=== PATIENT | female | born 1955 | race Caucasian/White ===

== ENCOUNTER 2019-09-15 07:48 | Outpatient (CLI) | payer MEDICARE, SELFPAY ==
--- NOTE | ~2019-09-15 | DEXA_ITS ---
Bone Density Report Name: Michelle Bailey Age: 64 Sex: Female Ethnicity: White Date of : 1955 Indication: postmenopausal; Referring Provider: VIDYA WALLIS Study: Bone densitometry was performed. Exam Date: September 15, 2019 Accession number: [id number] Bone Density: Region BMD T-score Z-score Classification AP Spine (L1-L4) 0.862 -1.7 0.2 Osteopenia Femoral Neck (Left) 0.688 -1.5 0.1 Osteopenia Total Hip (Left) 0.899 -0.3 1.0 Normal Total Hip Bilateral Avg 0.889 -0.4 0.9 Normal Femoral Neck (Right) 0.678 -1.5 0.1 Osteopenia Total Hip (Right) 0.878 -0.5 0.8 Normal World Health Organization criteria for BMD impression classify patients as: Normal (T-score at or above -1.0), Osteopenia (T-score between -1.0 and -2.5), or Osteoporosis (T-score at or below -2.5). 10-year Fracture Risk(1): Major Osteoporotic Fracture 9.0% Hip Fracture 1.1% Reported Risk Factors: [place] (), Neck BMD=0.678, BMI=23.6 (1) FRAX(R) Version 3.08. Fracture probability calculated for an untreated patient. Fracture probability may be lower if the patient has received treatment. Clinical Information Provided by Patient: Has used the following medications: Vitamin D Patient maximum height was 65 Menopause Age: 49 Drinks caffeinated beverages Onset of menses at age 13 Number of children 1 Impression: The patient has low bone mass, based on the Total Spine T-score. The patient has an estimated ten-year risk of hip fracture of 1.1% and an estimated ten-year risk of major fracture of 9%, based on the WHO FRAX algorithm. Discussion: BONE DENSITY IS LOW AT ONE OR MORE SKELETAL SITES. This patient's lowest T-score is low at one or more skeletal sites. It meets the World Health Organization's (WHO) criteria for ?low bone mass? (T-score between -1.0 and -2.5). The patient's 10-year risk of fracture as calculated by FRAX is less than the threshold where pharmacological therapy is recommended by the National Osteoporosis Foundation (NOF). However, all treatment decisions require clinical judgment and consideration of individual patient factors, including patient preferences, comorbidities, previous drug use, risk factors not captured in the FRAX model (e.g., frailty, falls, vitamin D deficiency, increased bone turnover, interval significant decline in bone density) and possible under or overestimation of fracture risk by FRAX. The patient should follow a healthful lifestyle (good nutrition with adequate calcium and vitamin D, and appropriate weight-bearing exercise). Follow-Up: Consider repeating this study in 2 to 3 years to reassess this patient's status, or sooner if there is some new clinical indication. Reported by: AUGUST on 09/15/2019 8:22:00 AM. joseph Moran
== END 2019-09-15 07:49 | disposition home or self-care (01) ==
PROVIDERS: PCP Family Medicine; Visit Provider Obstetrics & Gynecology Gynecology
DX: Z78.0 Asymptomatic menopausal state (principal); M85.88 Other specified disorders of bone density and structure, other site; M85.852 Other specified disorders of bone density and structure, left thigh; M85.851 Other specified disorders of bone density and structure, right thigh
CPT/HCPCS: 77080

== ENCOUNTER 2020-09-14 10:34 | Outpatient (CLI) | payer MEDICARE, SELFPAY ==
--- NOTE | ~2020-09-14 | MM_ITS ---
EXAMINATION: MM screening koffi BI w kyaw HISTORY: Screening TECHNIQUE: Craniocaudal and mediolateral oblique 3-D tomosynthesis images were obtained and synthetic 2-D images were generated. CAD analysis was submitted and interpreted. COMPARISON: 06/12/2012 BREAST PARENCHYMAL COMPOSITION: There are scattered areas of fibroglandular density. FINDINGS: There is no evidence of suspicious mass, calcification, or architectural distortion to sugg est malignancy in either breast. There has been no suspicious interval change. IMPRESSION: 1. No mammographic evidence of malignancy. 2. Recommend routine screening mammography in one year. BI-RADS Category 1: Negative Reviewed, dictated and finalized at location A. GER TREASURY
== END 2020-09-14 10:35 | disposition home or self-care (01) ==
PROVIDERS: PCP Family Medicine; Visit Provider Obstetrics & Gynecology Gynecology
DX: Z12.31 Encounter for screening mammogram for malignant neoplasm of breast (principal)
CPT/HCPCS: 77063; 77067

== ENCOUNTER → 2021-06-14 03:34 | Outpatient (CLI) | payer MEDICARE, SELFPAY ==
[2021-06-14 17:35] LABS: SARS-CoV-2 RNA PCR Negative
== END ==
PROVIDERS: PCP Family Medicine; Visit Provider Obstetrics & Gynecology Gynecology
DX: Z20.822 Contact with and (suspected) exposure to COVID-19 (principal)
CPT/HCPCS: C9803; U0003; U0005

== ENCOUNTER 2021-10-10 09:28 | Outpatient (CLI) | payer MEDICARE, SELFPAY ==
--- NOTE | ~2021-10-10 | XR_ITS ---
EXAMINATION: XR lumbar spine 6V w bending DATE: 10/10/2021 09:55 INDICATION: Dorsalgia TECHNIQUE: Anteroposterior, lateral in neutral, flexion and extension, and bilateral oblique views of the lumbar spine, and cone-down lateral view of the lumbosacral junction were obtained. COMPARISON: None. FINDINGS: There is no fracture. There are 3 mm of anterolisthesis of L3 on L4. No laxity is present w ith flexion or extension. There is moderate loss of intervertebral disc space height at L2-3. Mild lo ss of intervertebral disc space height is present at L3-4 and L5-S1. The vertebral body heights are m aintained. Small degenerative osteophytes project from the anterior endplates of multiple vertebral b odies. There is moderate facet osteoarthritis of the lower lumbar spine. Calcified atherosclerosis is noted. IMPRESSION: 1. Moderate lumbar spondylosis without acute findings. Reviewed, dictated and finalized at location F. 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
== END 2021-10-10 09:29 | disposition home or self-care (01) ==
PROVIDERS: PCP Family Medicine; Visit Provider Family Medicine
DX: M47.896 Other spondylosis, lumbar region (principal)
CPT/HCPCS: 72114

== ENCOUNTER 2021-11-08 08:08 | Outpatient (CLI) | payer MEDICARE, SELFPAY ==
--- NOTE | ~2021-11-08 | DEXA_ITS ---
Bone Density Report Name: AMBER FREEMAN Age: 66 Sex: Female Ethnicity: White Date of : 1955 Indication: osteopenia; monitoring treatment; postmenopausal Referring Provider: VIDYA WALLIS Study: Bone densitometry was performed. Exam Date: November 08, 2021 Accession number: [id number] Bone Density: Region BMD T-score Z-score Classification AP Spine (L1-L4) 0.953 -0.9 1.2 Normal Femoral Neck (Left) 0.697 -1.4 0.3 Osteopenia Total Hip (Left) 0.926 -0.1 1.3 Normal Total Hip Bilateral Avg 0.897 -0.4 1.1 Normal Femoral Neck (Right) 0.665 -1.7 0.1 Osteopenia Total Hip (Right) 0.866 -0.6 0.8 Normal World Health Organization criteria for BMD impression classify patients as: Normal (T-score at or above -1.0), Osteopenia (T-score between -1.0 and -2.5), or Osteoporosis (T-score at or below -2.5). 10-year Fracture Risk: FRAX not reported because: Treated for osteoporosis Previous Exams: Region Exam Age BMD T-score BMD Change BMD Change Date g/cm2 vs Baseline vs Previous AP Spine(L1-L4) 11/08/2021 66 0.953 -0.9 0.091(10.6%)* 0.091(10.6%)* 09/15/2019 64 0.862 -1.7 Total Hip(Left) 11/08/2021 66 0.926 -0.1 0.026(2.9%) 0.026(2.9%) 09/15/2019 64 0.899 -0.3 Total Hip(Right) 11/08/2021 66 0.866 -0.6 -0.012(-1.3%) -0.012(-1.3%) 09/15/2019 64 0.878 -0.5 *Denotes significance at 95% confidence level, LSC for AP Spine = 0.022 g/cm2, LSC for Total Hip = 0.027 g/cm2 Clinical Information Provided by Patient: Is being treated for osteoporosis Has used the following medications: Boniva (i.e. ibandronate), Vitamin D Patient maximum height was 65 Menopause Age: 49 Drinks caffeinated beverages Onset of menses at age 13 Number of children 1 Impression: The patient has low bone mass, based on the Right Femoral Neck T-score. No significant bone loss was observed. Discussion: PATIENT UNDER TREATMENT WITH NO SIGNIFICANT BMD LOSS SINCE LAST EXAM. In an untreated patient, BMD typically declines with age. A lack of decline or gain is usually a sign that treatment is efficacious and fracture risk is reduced. It is important to ask patients whether they are taking their medications and to encourage continued and appropriate compliance with their osteoporosis therapies to reduce fracture risk. It is also important to review their risk factors and encourage appropriate calcium and vitamin D intakes, exercise, fall prevention and other lifestyle measur
== END 2021-11-08 08:09 | disposition home or self-care (01) ==
LOC: ANHIMG 08:10
PROVIDERS: PCP Family Medicine; Visit Provider Obstetrics & Gynecology Gynecology
DX: Z78.0 Asymptomatic menopausal state (principal); M85.89 Other specified disorders of bone density and structure, multiple sites
CPT/HCPCS: 77080

== ENCOUNTER 2021-11-30 16:08 | Outpatient (CLI) | payer MEDICARE, SELFPAY ==
--- NOTE | ~2021-11-30 | MM_ITS ---
EXAMINATION: MM screening koffi BI w kyaw HISTORY: Screening TECHNIQUE: Craniocaudal and mediolateral oblique 3-D tomosynthesis images were obtained and synthetic 2-D images were generated. CAD analysis was submitted and interpreted. COMPARISON: Comparison to multiple prior studies sequentially, with oldest reviewed study dated 05/20. BREAST PARENCHYMAL COMPOSITION: The breasts are heterogeneously dense, which may obscure small masses . FINDINGS: There is no evidence of suspicious mass, calcification, or architectural distortion to sugg est malignancy in either breast. There has been no suspicious interval change. IMPRESSION: 1. No mammographic evidence of malignancy. 2. Recommend routine screening mammography in one year. BI-RADS Category 1: Negative Reviewed, dictated and finalized at location A.
== END 2021-11-30 16:09 | disposition home or self-care (01) ==
PROVIDERS: PCP Family Medicine; Visit Provider Obstetrics & Gynecology Gynecology
DX: Z12.31 Encounter for screening mammogram for malignant neoplasm of breast (principal)
CPT/HCPCS: 77063; 77067

== ENCOUNTER 2023-02-13 15:00 | Outpatient (CLI) | payer MEDICARE, SELFPAY ==
--- NOTE | ~2023-02-13 | MM_ITS ---
EXAMINATION: MM screening koffi BI w kyaw HISTORY: Screening mammogram TECHNIQUE: Craniocaudal and mediolateral oblique 3-D tomosynthesis images were obtained and synthetic 2-D images were generated. CAD analysis was submitted and interpreted. COMPARISON: November 30, 2021, September 14, 2020 bilateral screening mammogram examinations BREAST PARENCHYMAL COMPOSITION: The breasts are heterogeneously dense, which may obscure small masses . FINDINGS: There is no evidence of suspicious mass, calcification, or architectural distortion to sugg est malignancy in either breast. There has been no suspicious interval change. IMPRESSION: 1. No mammographic evidence of malignancy. 2. Recommend routine screening mammography in one year. BI-RADS Category 1: Negative Reviewed, dictated and finalized at location A.
== END 2023-02-13 15:01 | disposition home or self-care (01) ==
LOC: ANHIMG 15:02
PROVIDERS: PCP Family Medicine; Visit Provider Obstetrics & Gynecology Gynecology
DX: Z12.31 Encounter for screening mammogram for malignant neoplasm of breast (principal)
CPT/HCPCS: 77063; 77067

== ENCOUNTER 2023-03-01 08:22 | Outpatient (CLI) | payer MEDICARE, SELFPAY ==
--- NOTE | ~2023-03-01 | XR_ITS ---
Right Shoulder Technique: AP and axillary views were obtained. Clinical History: Pain Findings: No fracture or dislocation is seen. Osseous alignment is anatomic. The glenohumeral and acr omioclavicular joint spaces are preserved. Soft tissues are unremarkable. Impression: Unremarkable right shoulder radiographs. Reviewed, dictated and finalized at [facility]. Impression: Unremarkable right shoulder radiographs.
--- NOTE | ~2023-03-01 | XR_ITS ---
EXAMINATION:[id number] DATE: 03/01/2023 08:49 INDICATION: Neck pain TECHNIQUE: AP, lateral, and odontoid views of the cervical spine are provided. COMPARISON: None FINDINGS: Alignment is normal. The odontoid process is intact. No fracture is identified. The vertebr al body heights are maintained. There is moderate loss of intervertebral disc space height at C5-6 an d C6-7 and mild loss of disc space height at C4-5. Small degenerative osteophytes project from the an terior endplates of multiple vertebral bodies. There is moderate facet and uncovertebral joint osteoa rthritis at C5-6 and C6-7. Prevertebral soft tissues are normal. IMPRESSION: 1. Moderate cervical spondylosis without acute findings. Reviewed, dictated and finalized at location B.
== END 2023-03-01 08:23 | disposition home or self-care (01) ==
PROVIDERS: PCP Family Medicine; Visit Provider Physician Assistant
DX: M25.511 Pain in right shoulder (principal); M47.892 Other spondylosis, cervical region
CPT/HCPCS: 72040; 73030

== ENCOUNTER 2023-05-31 07:58 | Outpatient (CLI) | payer MEDICARE, SELFPAY ==
--- NOTE | ~2023-05-31 | MR_ITS ---
MRI of the cervical spine Clinical History: Cervical spondylosis Technique: Axial T2-weighted and gradient images, and sagittal T1-weighted, T2-weighted, and STIR estrella ges were acquired. Findings: There is no fracture or subluxation of cervical spine. Vertebral bodies maintain normal hei ght and alignment. No suspicious bone marrow signal abnormality seen. At C2-C3, there is no significant disc bulge or herniation. No spinal canal stenosis, cord compressio n, or neural foraminal narrowing. At C3-C4, there is minimal disc bulge. No spinal canal stenosis, cord compression, or neural foramina l narrowing. At C4-C5, there is mild disc osteophyte complex, most prominent at the right foraminal region. There is mild right facet arthropathy. There is mild right neural foraminal narrowing. Left neural foramen preserved. No central canal stenosis or cord compression. At C5-C6, there is disc osteophyte complex with minimal canal stenosis but no teo cord compression. There is bilateral neural foraminal narrowing. At C6-C7, there is disc osteophyte complex. There is probable minimal bilateral neural foraminal narr owing. No central canal stenosis or cord compression. No abnormal signal seen in the spinal cord. Paravertebral soft tissues are unremarkable. Impression: Mild degenerative spondylosis overall, as detailed above. Reviewed, dictated and finalized at [facility]. Impression: Mild degenerative spondylosis overall, as detailed above.
== END 2023-05-31 07:59 | disposition home or self-care (01) ==
PROVIDERS: PCP Family Medicine; Visit Provider Physician Assistant
DX: M43.02 Spondylolysis, cervical region (principal); M47.22 Other spondylosis with radiculopathy, cervical region
CPT/HCPCS: 72141

== ENCOUNTER 2024-01-16 07:21 | Day surgery (SDC) | payer MEDICARE, SELFPAY ==
[2024-01-06 13:17] VITALS: BMI 23.3
--- NOTE | 2024-01-16 06:56 | WPDANESEPPF ---
Anes - Initial Pre Proc Eval Procedure: Operation Date: 01/16/24 09:30 Proposed Procedures p Esophagogastroduodenoscopy - Vahid Capps MD s Diagnostic Colonoscopy - Vahid Capps MD <Edwin Alcala, DO - Last Filed: 01/16/24 11:17> Date/Time: 01/16/24 06:56 <Edwin Alcala, DO - Last Filed: 01/16/24 11:17> Surgeon: Vahid Capps MD <Edwin Alcala, DO - Last Filed: 01/16/24 11:17> Pre Op Diagnosis: Gerd , Family HX Malignant Neoplasm <Edwin Alcala, DO - Last Filed: 01/16/24 11:17> Patient Data Age: 68 Gender: F Height: 1.65 m Weight: 63.503 kg <Edwin Alcala, DO - Last Filed: 01/16/24 11:17> Allergies Allergy/AdvReac Type Severity Reaction Status Date / Time Penicillins Allergy Mild Hives / Verified 01/16/24 08:22 Red Face <Edwin Alcala, DO - Last Filed: 01/16/24 11:17> Home Medications Medication Instructions Recorded Confirmed Type Bacillus coagulans 10 billion cell cell PO DIRECTED 09/15/19 01/02/24 History capsule,delayed release (Probiotic (B. coagulans)) valacyclovir 1 gram tablet 1,000 mg PO DAILY PRN preventive 02/15/22 01/16/24 Rx #90 tabs ergocalciferol (vitamin D2) 1,250 50,000 unit PO .QOWEEK #10 caps 01/02/24 01/16/24 Rx mcg (50,000 unit) capsule levothyroxine 50 mcg tablet See Rx Instructions .Route 01/02/24 01/16/24 Rx .COMPLEX #90 tabs pantoprazole 20 mg tablet,delayed See Rx Instructions .Route 01/02/24 01/16/24 Rx release .COMPLEX #90 tabs rosuvastatin 5 mg tablet See Rx Instructions .Route 01/02/24 01/16/24 Rx .COMPLEX #90 tabs sodium,potassium,mag sulfates 17.5 See Rx Instructions PO .COMPLEX 01/06/24 01/16/24 Rx gram-3.13 gram-1.6 gram oral soln #354 mL (Suprep Bowel Prep Kit) <Edwin Alcala DO - Last Filed: 01/16/24 11:17> Patient hx anesthesia problems: none <Hamzah Francois CRNA - Last Filed: 01/16/24 09:01> Family hx anesthesia problems: none <Hamzah Francois CRNA - Last Filed: 01/16/24 09:01> Results Review: All pre-operative results and documents have been reviewed as part of the pre-operative evaluation. <Edwin Alcala, - Last Filed: 01/16/24 11:17> [facility] Past Medical History Medical History: Medical History (Updated 01/16/24 @ 09:00 by Vahid Capps MD) Adult hypothyroidism GERD (gastroesophageal reflux disease) Neck pain Prolonged Q-T interval on ECG PVC (premature ventricular contraction) <Edwin Alcala DO - Last Filed: 01/16/24 11:17> Surgical History Surgical History: Surgical History History of tonsillectomy and adenoidectomy <Edwin Alcala DO - Last Filed: 01/16/24 11:17> Family History Family History: Family History Father , 86yrs old Cerebrovascular accident, Onset Age: 86 Stroke A-fib Sibling Carcinoma of colon Diabetes mellitus <Edwin Alcala DO - Last Filed: 01/16/24 11:17> Social History Social History: Social History (Updated 01/02/24 @ 10:56 by Barbara Starks) Social History: Smoking status: Never smoker Second hand tobacco smoke exposure: No Alcohol intake: current Drinks per week: 6 Substance use: never Substance use type: does not use Do You Feel Safe in your Home?: Yes Lack of Transportation: No Lack of Food: Never True Current Housing: I Have Housing Concerned About Future Housing: No Difficulty Paying Gas/Electric Bills: No Difficulty Paying for Meds: No Currently Unemployed: YES Education: Don't Know Difficulty w/ Childcare or Family Care: No Living arrangements: with family Occupation/Education: retired Gender identity (if verbalized by the patient): Female Sexual Orientation (if Verbalized by the Patient): Straight or Heterosexual
[2024-01-16 08:32] VITALS: BP 117/72; PULSE 55; RESP 20; O2SAT 100
[2024-01-16] MEDS: LACTATED RINGERS 1,000 ML 150 ML IV CONT (08:44)
--- NOTE | 2024-01-16 08:58 | PM.HPGS ---
History of Present Illness History of Present Illness Consent: Risks, benefits, and alternatives have been discussed and questions answered. Patient agrees to proceed with procedure. Chief complaint: Gerd , Family HX Malignant Neoplasm Narrative: Michelle Bailey is a 68 year old female presents for both colonoscopy and EGD patient reports her weight appetite and bowel movements are normal. She denies abdominal pain. She has had no bleeding. She does have a long history of epigastric discomfort. This intensifies when she bends over. This is improved on taking pantoprazole. She currently takes 20mg every 3 days. She has been unable to have the pain totally go away. She presents today for EGD. She has never previously had an endoscopy. Patient denies any dysphagia weight loss or bleeding. Patient's brother has had colon cancer for this reason surveillance advised 5 year intervals. Review of Systems Review of Systems: All systems reviewed & are unremarkable except as noted in HPI and below PMFSH Past Medical History Medical History (Updated 01/16/24 @ 09:00 by Vahid Capps MD) Adult hypothyroidism GERD (gastroesophageal reflux disease) Neck pain Prolonged Q-T interval on ECG PVC (premature ventricular contraction) Surgical History Surgical History History of tonsillectomy and adenoidectomy Family History Family History Father , 86yrs old Cerebrovascular accident, Onset Age: 86 Stroke A-fib Sibling Carcinoma of colon Diabetes mellitus Social History Social History (Updated 01/02/24 @ 10:56 by Barbara Starks) Social History: Smoking status: Never smoker Second hand tobacco smoke exposure: No Alcohol intake: current Drinks per week: 6 Substance use: never Substance use type: does not use Do You Feel Safe in your Home?: Yes Lack of Transportation: No Lack of Food: Never True Current Housing: I Have Housing Concerned About Future Housing: No Difficulty Paying Gas/Electric Bills: No Difficulty Paying for Meds: No Currently Unemployed: YES Education: Don't Know Difficulty w/ Childcare or Family Care: No Living arrangements: with family Occupation/Education: retired Gender identity (if verbalized by the patient): Female Sexual Orientation (if Verbalized by the Patient): Straight or Heterosexual Meds Home Medications and Allergies Home Medications Medication Instructions Recorded Confirmed Type Bacillus coagulans 10 billion cell cell PO DIRECTED 09/15/19 01/02/24 History capsule,delayed release (Probiotic (B. coagulans)) valacyclovir 1 gram tablet 1,000 mg PO DAILY PRN preventive 02/15/22 01/16/24 Rx #90 tabs ergocalciferol (vitamin D2) 1,250 50,000 unit PO .QOWEEK #10 caps 01/02/24 01/16/24 Rx mcg (50,000 unit) capsule levothyroxine 50 mcg tablet See Rx Instructions .Route 01/02/24 01/16/24 Rx .COMPLEX #90 tabs pantoprazole 20 mg tablet,delayed See Rx Instructions .Route 01/02/24 01/16/24 Rx release .COMPLEX #90 tabs rosuvastatin 5 mg tablet See Rx Instructions .Route 01/02/24 01/16/24 Rx .COMPLEX #90 tabs sodium,potassium,mag sulfates 17.5 See Rx Instructions PO .COMPLEX 01/06/24 01/16/24 Rx gram-3.13 gram-1.6 gram oral soln #354 mL (Suprep Bowel Prep Kit) Allergies Allergy/AdvReac Type Severity Reaction Status Date / Time Penicillins Allergy Mild Hives / Verified 01/16/24 08:22 Red Face Vital Signs Vital Signs - 24 hr 01/16/24 08:32 Pulse Rate 55 L Respiratory Rate 20 Blood Pressure 117/72 Pulse Oximetry 100 Oxygen Delivery Room Air Exam Narrative: Physical exam reveals patient to be alert. Vital signs stable. HEENT exam is unremarkable. Patient is anicteric. Lungs are clear to auscultation and to percussion. His without murmur or extra sounds. Abdomen b
[2024-01-16 10:00] VITALS: BP 101/49; PULSE 56; RESP 12; O2SAT 99
[2024-01-16 10:10] VITALS: BP 100/61; PULSE 55; RESP 14; O2SAT 100
[2024-01-16 10:20] VITALS: BP 114/63; PULSE 58; RESP 16; O2SAT 100
--- NOTE | 2024-01-16 11:18 | WPDANESPN ---
Anes - Prog Note Post-Op Date/Time: 01/16/24 11:18 Cardiovascular status: normal Respiratory status: normal Airway patency: baseline Mental status: baseline Post-Op hydration status: normal Vital Signs: Last Vital Signs Pulse 58 L 01/16/24 10:20 Resp 16 01/16/24 10:20 BP 114/63 01/16/24 10:20 Pulse Ox 100 01/16/24 10:20 O2 Del Method Room Air 01/16/24 10:20 Pain Score (VAS): 0 I/O: Intake & Output 01/15/24 01/16/24 01/16/24 23:59 07:59 15:59 Intake Total 800 Balance 800 Post-procedural complaints: none Patient Feedback: Patient satisfied with anesthetic care. Other Findings: Patient vital signs back to baseline. Patient denies nausea and vomiting. Patient's pain under control. Patient OK for discharge.
== END 2024-01-16 10:26 | disposition home or self-care (01) ==
PROVIDERS: PCP Family Medicine; Visit Provider Internal Medicine Gastroenterology
PROC: 0DJ08ZZ Inspection of Upper Intestinal Tract, Via Natural or Artificial Opening Endoscopic (ICD-10-PCS; CPT 43235; principal; 2024-01-16 09:30)
PROC: 0DJD8ZZ Inspection of Lower Intestinal Tract, Via Natural or Artificial Opening Endoscopic (ICD-10-PCS; CPT 45378; 2024-01-16 09:30)
DX: Z80.0 Family history of malignant neoplasm of digestive organs (principal); K21.9 Gastro-esophageal reflux disease without esophagitis; K64.8 Other hemorrhoids; R10.13 Epigastric pain
CPT/HCPCS: G0105; 43235

== ENCOUNTER 2024-02-13 09:50 | Outpatient (CLI) | payer MEDICARE, SELFPAY ==
--- NOTE | ~2024-02-13 | DEXA_ITS ---
Bone Density Report Name: AMBER FREEMAN Age: 69 Sex: Female Ethnicity: White Date of : 1955 Indication: postmenopausal; screening for osteoporosis; height loss; Referring Provider: VIDYA WALLIS Study: Bone densitometry was performed. Exam Date: February 13, 2024 Accession number: [id number] Bone Density: Region BMD T-score Z-score Classification AP Spine(L1-L4) 0.959 -0.8 1.4 Normal Femoral Neck (Left) 0.723 -1.1 0.7 Osteopenia Total Hip (Left) 0.933 -0.1 1.5 Normal Femoral Neck (Right) 0.692 -1.4 0.4 Osteopenia Total Hip (Right) 0.876 -0.5 1.0 Normal Total Hip Mean 0.905 -0.3 1.3 Normal World Health Organization criteria for BMD impression classify patients as: Normal (T-score at or above -1.0), Osteopenia (T-score between -1.0 and -2.5), or Osteoporosis (T-score at or below -2.5). 10-year Fracture Risk: FRAX not reported because: Treated for osteoporosis Clinical Information Provided by Patient: Is being treated for osteoporosis Has used the following medications: Vitamin D, Calcium Patient maximum height was 66 Menopause Age: 49 Drinks caffeinated beverages Onset of menses at age 12 Number of children 1 Impression: The patient has low bone mass, based on the Right Femoral Neck T-score. Discussion: It is important to ask patients whether they are taking their medications and to encourage continued and appropriate compliance with their osteoporosis therapies to reduce fracture risk. It is also important to review their risk factors and encourage appropriate calcium and vitamin D intakes, exercise, fall prevention and other lifestyle measures. Follow-Up: Consider a repeat BMD and Vertebral Fracture Assessment (VFA) exam in 2 years or sooner if medically necessary, to reassess this patient's status. Reported by: ROBERTA on 02/13/2024 10:44:00 AM. Reviewed, dictated and finalized at location ARichard MALLORY
== END 2024-02-13 09:51 | disposition home or self-care (01) ==
PROVIDERS: PCP Family Medicine; Visit Provider Obstetrics & Gynecology Gynecology
DX: M85.89 Other specified disorders of bone density and structure, multiple sites (principal); Z78.0 Asymptomatic menopausal state; Z13.820 Encounter for screening for osteoporosis
CPT/HCPCS: 77080

== ENCOUNTER 2024-02-27 16:46 | Outpatient (CLI) | payer MEDICARE, SELFPAY ==
--- NOTE | ~2024-02-27 | MM_ITS ---
EXAMINATION: MM screening koffi BI w kyaw HISTORY: Screening TECHNIQUE: Craniocaudal and mediolateral oblique 3-D tomosynthesis images were obtained and synthetic 2-D images were generated. CAD analysis was submitted and interpreted. COMPARISON: Comparison to multiple prior studies sequentially, with oldest reviewed study dated 09/14. BREAST PARENCHYMAL COMPOSITION: Not dense: There are scattered areas of fibroglandular density. FINDINGS: There is no evidence of suspicious mass, calcification, or architectural distortion to sugg est malignancy in either breast. There has been no suspicious interval change. IMPRESSION: 1. No mammographic evidence of malignancy. 2. Recommend routine screening mammography in one year. BI-RADS Category 1: Negative Reviewed, dictated and finalized at location B.
== END 2024-02-27 16:47 | disposition home or self-care (01) ==
LOC: ANHIMG 16:48
PROVIDERS: PCP Family Medicine; Visit Provider Obstetrics & Gynecology Gynecology
DX: Z12.31 Encounter for screening mammogram for malignant neoplasm of breast (principal)
CPT/HCPCS: 77063; 77067

== ENCOUNTER 2024-03-26 13:29 | Outpatient (CLI) | payer MEDICARE, SELFPAY ==
--- NOTE | 2024-03-26 13:43 | ECHO_ITS ---
Patient Info Name: Michelle Bailey Age: 69 years : 1955 Gender: Female Ht: 65 in Wt: 140 lbs BSA: 1.71 m2 HR: 70 bpm BP: 146 / 77 mmHg Heart Rhythm: Sinus Rhythm Technical Quality: Good Exam Date: 03/26/2024 2:20 PM Exam Location: Echo Lab Patient Status: Outpatient Admit Date: 03/26/2024 Staff Ordering Physician: Mariluz Calderon MD Earth Mover: Cherelle Deleon RDCS Attending Provider: Mariluz Calderon MD Referring Physician: Yumiko COBB; Exam Type: CA echo doppler color flow Study Info Indications - murmur Complete two-dimensional, color flow and Doppler transthoracic echocardiogram is performed. Summary 1. Complete two-dimensional, color flow and Doppler transthoracic echocardiogram is performed. 2. Mild left ventricular enlargement with mild global systolic hypokinesia. 3. Mild left atrial enlargement. 4. Small amount of mitral regurgitation. Left Ventricle Left ventricular chamber dimension is mildly enlarged. Left ventricular systolic function is mildly reduced, estimated at 40-45%. The left ventricular diastolic function is grade I diastolic dysfunction. Right Ventricle Right ventricular chamber dimension is normal. Left Atria Left atrial chamber dimension is mildly enlarged. Right Atria Right atrial chamber dimension is normal. Aortic Valve The aortic valve is trileaflet. There is mild aortic valve sclerosis. Pulmonic Valve The pulmonic valve is not well visualized. Mitral Valve The mitral valve has normal leaflets. There is trace mitral valve regurgitation. Tricuspid Valve The tricuspid valve leaflets are normal. Pericardium/Pleural The pericardium appears normal. Aorta The aortic root size at the sinus of Valsalva is normal. Left Ventricular Outflow Tract Name Value Normal LVOT 2D LVOT Diameter 1.9 cm LVOT Doppler LVOT Peak Gradient 3 mmHg LVOT Mean Gradient 2 mmHg LVOT VTI 23 cm LVOT VTI/AV VTI Ratio 0.7 LVOT Stroke Volume 66 ml LVOT CO 3.7 l/min LVOT CI 2.1 l/min/m2 Pulmonic Valve Name Value Normal PV Doppler PV Peak Gradient 3 mmHg Mitral Valve Name Value Normal MV Doppler MV Decel Floyd 250 cm/s2 MV PHT 84 ms MV Area (PHT) 2.6 cm2 4.0-5.0 MV Regurgitation Doppler MR Peak Gradient 79 mmHg MV Diastolic F
== END 2024-03-26 13:30 | disposition home or self-care (01) ==
LOC: ANHCARD 13:33
PROVIDERS: PCP Family Medicine; Visit Provider Family Medicine
DX: R01.1 Cardiac murmur, unspecified (principal); Z98.890 Other specified postprocedural states
CPT/HCPCS: 93306

== ENCOUNTER 2024-04-15 09:07 | Outpatient (CLI) | payer MEDICARE, SELFPAY ==
--- NOTE | 2024-04-15 09:32 | EST_ITS ---
Patient Info Name: Michelle Bailey Age: 69 years : 1955 Gender: Female Ht: 65 in Wt: 140 lbs BSA: 1.71 m2 HR: 62 bpm BP: 126 / 81 mmHg Heart Rhythm: Sinus Rhythm Exam Date: 04/15/2024 9:43 AM Exam Location: Echo Lab Patient Status: Outpatient Admit Date: 04/15/2024 Staff Ordering Physician: Mariluz Calderon MD Attending Provider: Mariluz Calderon MD Exercise Technologist: Cyndee Morton CT Exercise Physician: Rod Wallis DO Exam Type: CA stress test treadmill Study Info Indications R07.89 - Other chest pain A treadmill exercise stress test was performed. Summary 1. 1. Negative Garfield exercise stress test for ischemic ST changes by ECG criteria. 2. 2. Good functional capacity, achieving 8 METs of workload. 3. 3. Hypertensive response to exercise. 4. 4. Appropriate HR response to exercise. 5. 5. Appropriate HR recovery at 1 minute post exercise. 6. 6. No imaging with stress testing. 7. 7. Patient informed of the above results. Protocol: Garfield Stress ECG Details Stage: REST Duration (min): 0 min : 58 sec Speed (mph): 0.0 Grade (%): 0 HR (bpm): 64 SBP (mmHg): 126 DBP (mmHg): 81 METS: --- Stage: REST Duration (min): 4 min : 50 sec Speed (mph): 0.0 Grade (%): 0 HR (bpm): 69 SBP (mmHg): 126 DBP (mmHg): 81 METS: --- Stage: STAGE 1 Duration (min): 1 min : 0 sec Speed (mph): 1.7 Grade (%): 10 HR (bpm): 91 SBP (mmHg): 126 DBP (mmHg): 81 METS: --- Stage: STAGE 1 Duration (min): 2 min : 0 sec Speed (mph): 1.7 Grade (%): 10 HR (bpm): 98 SBP (mmHg): 126 DBP (mmHg): 81 METS: --- Stage: STAGE 1 Duration (min): 3 min : 0 sec Speed (mph): 1.7 Grade (%): 10 HR (bpm): 101 SBP (mmHg): 173 DBP (mmHg): 49 METS: --- Stage: STAGE 2 Duration (min): 1 min : 0 sec Speed (mph): 2.5 Grade (%): 12 HR (bpm): 113 SBP (mmHg): 173 DBP (mmHg): 49 METS: --- Stage: STAGE 2 Duration (min): 2 min : 0 sec Speed (mph): 2.5 Grade (%): 12 HR (bpm): 115 SBP (mmHg): 199 DBP (mmHg): 50 METS: --- Stage: STAGE 2 Duration (min): 3 min : 0 sec Speed (mph): 2.5 Grade (%): 12 HR (bpm): 117 SBP (mmHg): 199 DBP (mmHg): 50 METS: --- Stage: STAGE 3 Duration (min): 0 min : 33 sec Speed (mph): 3.4 Grade (%): 14 HR (bpm): 127 SBP (mmHg): 199 DBP (mmHg): 50 METS: --- Stage: RECOVERY Duration (min): 0 min : 26 sec Speed (mph): 0.0 Grade (%): 0 HR (bpm): 123 SBP (mmHg): 216 DBP (mmHg): 48 METS: --- Stage: RECOVERY Duration (min): 1 min : 26 sec Speed (mph): 0.0 Grade (%): 0 HR (bpm): 82 SBP (mmHg): 216 DBP (mmHg): 48 METS: --- Stage: RECOVERY Duration (min): 2 min : 26 sec Speed (mph): 0.0 Grade (%): 0 HR (bpm): 73 SBP (mmHg): 216 DBP (mmHg): 48 METS: --- Stage: RECOVERY Duration (min): 3 min : 14 sec Speed (mph): 0.0 Grade (%): 0 HR (bpm):
== END 2024-04-15 09:08 | disposition home or self-care (01) ==
LOC: ANHCARD 09:08
PROVIDERS: PCP Family Medicine; Visit Provider Family Medicine
DX: R07.9 Chest pain, unspecified (principal); R94.31 Abnormal electrocardiogram [ECG] [EKG]
CPT/HCPCS: 93017

== ENCOUNTER 2025-04-09 07:49 | Outpatient (CLI) | payer MEDICARE, SELFPAY ==
--- NOTE | ~2025-04-09 | MM_ITS ---
EXAMINATION: MM screening [facility] BI w kyaw HISTORY: Screening mammogram TECHNIQUE: Craniocaudal and mediolateral oblique 3-D tomosynthesis images were obtained and synthetic 2-D images were generated. CAD analysis was submitted and interpreted. COMPARISON: 02/27/2024 02/13/2023, 11/30/2021 BREAST PARENCHYMAL COMPOSITION:Not Dense. There are scattered areas of fibroglandular density. FINDINGS: No suspicious mass, calcification, or architectural distortion are identified in either breast to suggest malignancy. There has been no suspicious interval change. IMPRESSION: No mammographic evidence of malignancy. Recommend routine screening mammography in one year. BI-RADS Category 1: Negative Reviewed, dictated and finalized at location .
--- OUTSIDE RECORDS SUMMARY | 2025-04-09 07:53 | XMS_ITS | Encounter Summary ---
Author Organization [facility] Health Address [address] [place] [address] Care Team Providers Care Hand Bunch Maker Name Role Phone Matt Nascimento MD Primary Care Provider Unavailab Jn Martinez MD Unavailable [phone] Cem Douglas MD Unavailable Luiza Ennis MD Primary Care Provider Zenaida Slade MD Unavailable [phone] Gwen Peralta MD Primary Care Provider [phone] Dawna Walters MD Unavailable [phone] Gwen Peralta MD Unavailable Encounter Details Date Type Department Care Team (Late st Contact Info) Description 05/06/2015 Therapy Visit EXTERNAL NON-[facility] DEPT Unknown, Provider Social History Tobacco Use Types Packs/Day Years Used Date Smoking Tobacco: Never Smokeless Tobacco: Never Alcohol Use Standard Drinks/Week Comments Yes 0 (1 standard drink = 0.6 oz pur e alcohol) Comments No Sex and Gender Information Value Date Recorded Sex Assigned at Not on file Legal Sex Female 5:40 AM ELECTRICAL RESEARCH ENGINEER Gender Identity Female 10/09/2017 10:10 AM ELECTRICAL RESEARCH ENGINEER Sexual Orientation Not on file documented as of this encounter Plan of Treatment Not on file documented as of this encounter Goals Goal Patient Goal Type Associated Problems Recent Progress Patient-Stated? Author Reduce calorie intake to 2000 calories per day Diet No Mulu Contreras MA Note: exercise Yearly PCP visit Lifestyle No Mulu Contreras MA documented as of this encounter Visit Diagnoses Not on filedocumented in this encounter Care Teams Hand Bunch Maker Relationship Specialty Start Date End Date Matt Nascimento MD NEED INFORMATION UPDATED PCP - General 12/26/10 04/11/16 Luiza Ennis MD [address] [id number] PCP - General Obstetrics and Gynecology 04/12/16 08/21/16 Gwen Peralta MD [address] [facility] [address] [place] [id number] PCP - General Family Medicine 08/22/16 Gwen Peralta MD [address] [place] [address] [address] [place], [place] [id number] PCP - Attributed-Exclusive Choice 02/01/17 02/24/19 Jn Hale MD [address] [place] [address] [place] [id number] Obstetrics and Gynecology 10/20/13 Cem Douglas MD [address] [facility] [address] [place] [address] Orthopedic Surgery 11/23/14 Zenaida Slade MD [address] [facility] [address] [place] [address] Orthopedic Surgery 06/12/16 [place] [address] [place] [phone] Orthopedic Surgery 05/07/17 documented as of this encounter
--- OUTSIDE RECORDS SUMMARY | 2025-04-09 07:53 | XMS_ITS | Encounter Summary ---
Author Organization [facility] Address [address] [place] [address] Phone Care Team Providers Care Farm Loan Inspector Name Role Phone Valeriano Vasquez MD Primary Care Provider Encounter Details Date Type Department Care Team (Latest Contact Info) Description 03/23/2025 [place] [facility] [place] [address] [facility] 2[address] [place] [address] Rafita Rowe MD [address] [facility] [address] [place] [address] MRI Knee Right WO Contrast Social History Tobacco Use Types Packs/Day Years Used Date Smoking Tobacco: Never Passive Smoke Exposure: Never Smokeless Tobacco: Never AUDIT-C Answer Date Recorded Q1: How often do you have a drink containing alc ohol? Monthly or less 03/31/2024 Q2: How many drinks containi ng alcohol do you have on a typical day when you are drinking? 1 or 2 03/31/2024 Q3: How often do you have si x or more drinks on one occasion? Never 03/31/2024 Personal Safety Answer Date Recorded Have you ever been in or are you currently in a harmful physical or emotional relationship or is someone making you feel afraid or unsafe? Denies 03/31/2024 Comments No Sex and Gender Information Value Date Recorded Sex Assigned at Not on file Legal Sex Female 2:04 PM ARCHITECT IN TRAINING Gender Identity Female 12/23/2023 11:53 AM CDT Sexual Orientation Straight 12/23/2023 11 :53 AM CDT documented as of this encounter Miscellaneous Notes * Result Encounter Note - Toya Lee LPN - 03/24/2025 10:54 AM CDT LVM advising pt to return call to have follow up scheduled * Result Encounter Note - Rafita Rowe MD - 03/23/2025 5:51 PM CDT MRI of the knee demonstrates mild arthritic changes and a small meniscus tear. In the posterior/back of the knee, there is a small partially ruptured Burton's cyst. These findings are not immediately worrisome, the combination is likely contributing to inflammation and persistent discomfort. Based on previous messages, I recommend a follow up visit for re-evaluation. A cortisone steroid injection to reduce persistent inflammation could be considered, pending re-evaluation. Please update with any changes in symptoms, and please share thoughts/questions regarding these results and recommendation for a follow-up visit. documented in this encounter Plan of Treatment Not on file documented as of this encounter Visit Diagnoses Not on filedocumented in this encounter Care Teams Farm Loan Inspector Relationship Specialty Start Date End Date Valeriano Vasquez MD [address] [facility] [address] [address] PCP - General Family Medicine 01/27/25 documented as of this encounter
--- OUTSIDE RECORDS SUMMARY | 2025-04-09 07:53 | XMS_ITS | Clinical Summary ---
Author Organization [facility] Address [address] [facility] [place] [address] Care Team Providers Care Skidway Worker Name Role Phone Jn Hale MD Unavailable [phone] Cem Douglas MD Unavailable [phone] Zenaida Slade MD Unavailable Gwen Peralta MD Primary Care Provider [phone] Dawna Walters MD Unavailable [phone] Source Comments [facility],non-owned Affiliates and Associated Physician Practices is amultiple site organization consisting of ambulatory clinics and hospital sitesin [place], [place], [place] and [place]. This disclosure is being madepursuant to the Care Everywhere program and may not contain all information available regarding this patient. Last updated 18.[facility] Allergies Active Allergy Reactions Criticality Noted Date Comments Penicillins 05/25/2010 Medications * Be aware that medications may not be up to date on this document. Alwaysverify current medications with the patient. valACYclovir (VALTREX) 1 GM tablet Take 2 tablets p.o. b.i.d. for one day. 4 Tab 1 4 Active Additional Information Patient taking differently: 1,000 mg PRN, Take 2 tablets p.o. b.i.d. for one day., Reported on 02/20/2017 Probiotic Product (PROBIOTIC DAILY PO) Take 1 Tab by mouth once daily Active Ospemifene (OSPHENA PO) Take 1 tablet by mouth once daily Active pantoprazole EC (PROTONIX) 20 MG tablet Take 1 tablet by mouth once daily 90 tablet 3 8 Active vitamin D, ergocalciferol, (DRISDOL) 34920 UNITS capsule Take 50,000 Units by mouth every 7 days Active levothyroxine (SYNTHROID) 50 MCG tablet TAKE 1 TABLET BY MOUTH ONCE DAILY 90 tablet 9 Active Active Problems Problem Noted Date Diagnosed Date Nodule of finger of right hand 09/03/2018 Carpal tunnel syndrome, right 10/28/2017 Rotator cuff impingement syndrome of right shoul seth 09/24/2017 Ulnar neuropathy 09/24/2017 Primary osteoarthritis of right shoulder 018 Acute pain of right shoulder 08/23/2017 Chronic hip pain 06/15/2016 Pain of toe of right foot 06/15/2016 Piriformis syndrome of left side 06/15/2016 Fracture of proximal phalanx of toe of right leno t 06/15/2016 Vitamin D deficiency 05/21/2016 Toe injury 05/21/2016 Hip hematoma, left 11/23/2014 GERD (gastroesophageal reflux disease) 4 Hypothyroidism 05/18/2011 Overview (05/19/2015): Resolved Problems Problem Noted Date Diagnosed Date Resolved Date Elevated blood pressure read ing without diagnosis of hypertension 05/21/2016 08/23/2017 Contusion of left hip 11/23/20142017 Vitamin D deficiency disease 08/31/2013 05/21/2016 Immunizations Immunization Administration Dates Next Due INFLUENZA VACCINE 05/02/2021,05/08/2020,05/02/20 18 INFLUENZA VACCINE, ADJUVANTE D, TRIV. (FLUAD TRIVALENT; 65Y+) (AIIV3) 05/02/2018 PNEUMOCOCCAL PPSV23 02/27/2013 Pneumococcal Pcv13 Conj 08/22/2016 ZOSTER VACCINE, LIVE 07/06/2013 Zoster Hzv Vacc Recombinant Inj Im 03/16/2021, Family History Medical History Relation Name Comments Diabetes Brother 5 Cancer Brother 6 colon Heart Failure Father Hypercholesterolemia Father Hypertension Father Osteoporosis Maternal Grandmother Hypertension Mother Cancer - Breast Neg Hx Cancer - Ovarian Neg Hx Relation Name Status Comments Brother 1 Alive Brother 2 Alive Brother 3 Alive Brother 4 Brother 5 Brother 6 Father Maternal Grandfather Maternal Grandmother Mother Alive Paternal Grandfather Paternal Grandmother Social History Tobacco Use Types Packs/Day Years Used Date Smoking Tobacco: Never Smokeless Tobacco: Never Alcohol Use Standard Drinks/Week Comments Yes 0 (1 standard drink = 0.6 oz pur e alcohol) Comments No Sex and Gender Information Value Date Recorded Sex Assigned at Not on file Legal Sex Female 5:40 AM PRECISION LENS GENERATOR Gender Identity Female 10/09/2017 10:10 AM PRECISION LENS GENERATOR Sexual Orientation Not on file Last Filed Vital Signs Vital Sign Reading Time Taken Comments Blood Pressure 121/63 09/03/2018 8:31 AM PRECISION LENS GENERATOR Pulse 67 09/03/2018 8:31 AM PRECISION LENS GENERATOR Temperature 36.8 C (98.2 F) 09/03/2018 8:31 AM PRECISION LENS GENERATOR Respiratory Rate 16 04/12/2015 9:12 AM CDT Oxygen Saturation 97% 09/03/2018 8:31 AM PRECISION LENS GENERATOR Inhaled Oxygen Concentration - - Weight 64.9 kg (143 lb) 09/03/2018 8:31 AM PRECISION LENS GENERATOR Height 165.1 cm (5' 5) 09/03/2018 8:31 AM PRECISION LENS GENERATOR Body Mass Index 23.8 09/03/2018 8:31 AM PRECISION LENS GENERATOR Plan of Treatment Health Maintenance Due Date Last Done Comments COLOGUARD (AGES 45-75) - COLON CA SCREENING 1955 CT COLONOGRAPHY - COLON CA SCREENING 1955 FIT - COLON CA SCREENING 1955 FLEX SIG - COLON CA SCREENING 1955 MEDICARE AWV 12 MONTHS 1955 DTAP/TDAP/TD VACCINES (1 - Tdap) 02/01/1972 MAMMOGRAM 06/16/2021 06/16/2019, 05/19, 04/30/2017, Additional history exists PNEUMOCOCCAL VACCINE 50+ (3 of 3 - PCV20 or PCV21) 08/22/2021 08/22/2016, 02/27/2013 LIPID TESTING 09/03/2023 09/03/2018, 12/2017, 05/30/2016, Additional history exists COVID-19 VACCINE (2023- season) 2024 DEPRESSION SCREENING 08/19/2024 INFLUENZA VACCINE (#1) 2025 , 05/08/2020, 05/02/2018, Additional history exists Respiratory Syncytial Virus (RSV) Vaccine Pt: or over 60 yrs (1 - 1-dose 75+ series) 02/01/2028 COLON MONITORING 06/20/2028 06/20/2018, , 12/16/2012 COLONOSCOPY - COLON CA SCREENING 06/20/2028 06/20/2018, 12/16/2012, 12/16/2012, Additional history exists Colorectal Cancer Screening 06/20/2028 HEPATITIS C SCREENING Completed 05/30/2016 BONE DENSITY TESTING Completed 09/11/2017, 04/12/20 ZOSTER VACCINE Completed 03/16/2021, 12/18, 07/06/2013 HEPATITIS B VACCINE Aged Out No longe r eligible based on patient's age to complete this topic HIB VACCINE Aged Out No longer eligi ble based on patient's age to complete this topic HPV VACCINE Aged Out No longer eligi ble based on patient's age to complete this topic MENINGOCOCCAL (Group B) VACCINE SHARED DECISION-MAKING Aged Out No longer eligible based on patient's age to complete this topic MENINGOCOCCAL GROUPS A/C/Y/W VACCINE Aged Out No longer eligible based on patient's age to complete this topic Goals Goal Patient Goal Type Associated Problems Recent Progress Patient-Stated? Author Reduce calorie intake to 2000 calories per day Diet No Mulu Contreras MA Note: exercise Yearly PCP visit Lifestyle No Mulu Contreras MA Procedures Procedure Name Priority Date/Time Associated Diagnosis Comments MAMMO BILAT SCREENING Routine 06/16/2019 1:34 PM CDT Screening mammogram, encounter for LIPID PROFILE W TCHOL/HDL Routine 09/03/2018 9:02 AM PRECISION LENS GENERATOR Screening cholesterol level ENDOSCOPY, COLON, DIAGNOSTIC Routine 06/20/2018 DEXA BONE DENSITY AXIAL SKELETON Routine 09/11/2017 8:45 AM PRECISION LENS GENERATOR Post-menopausal Osteopenia, unspecified location HEPATITIS C ANTIBODY Routine 05/30/2016 7:47 AM CDT Need for hepatitis C screening test from Last 3 Months or Most Recently Relevant to Health Maintenance Results * DAYNA SCREENING DIGITAL IMAGE BILATERAL G0202 (06/16/2019 1:34 PM CDT) Anatomical Region Laterality Modality Breast Bilateral Mammography 06/16/2019 2:14 PM CDT Impressions 06/16/2019 2:27 PM CDT No mammographic evidence of malignancy in either breast. ASSESSMENT: BIRADS Category 1: Negative mammogram. RECOMMENDATION: Bilateral screening mammogram in one year. Thank you for allowing us to participate in the care of your patient. [facility] utilizes [employer] as a reminder system to notify patients of their next recommended mammogram. I, Rocio Lockwood, have personally reviewed the images and I agree with this report. Reading Radiologist: Rocio Lockwood MD on 06/16/2019 at 2:27 PM Narrative 06/16/2019 2:27 PM CDT EXAMINATION: Digital screening mammogram on 06/16/2019. Low-dose full-field digital breast tomosynthesis examination was performed with synthetic 2D images and 3D acquisitions. Computer assisted detection was utilized. PRIOR: Multiple prior mammograms, most recently 06/03/2018. HISTORY: Screening exam. BREAST PARENCHYMAL DENSITY: The breasts are heterogeneously dense, which may obscure small masses. FINDINGS: No suspicious masses, areas of architectural distortion or microcalcifications are evident on synthetic 2D mammogram or tomosynthesis images. There has been no significant interval change since the prior examination. us Luiza Ennis MD MAMMO ORDERABLES Final Resu lt * (ABNORMAL) LIPID PROFILE W TCHOL/HDL (09/03/2018 9:02 AM PRECISION LENS GENERATOR) Cholesterol 217(H) 100 - 199 mg/dL [facility] INSURANCE BILL Triglycerides 101 0 - 149 mg/dL [facility] INSURANCE BILL HDL Cholesterol 73 >39 mg/dL [facility] INSURANCE BILL VLDL Calculated 20 5 - 40 mg/dL [facility] INSURANCE BILL LDL Calculated 124(H) 0 - 99 mg/dL [facility] INSURANCE BILL Comment NOT NEEDED [facility] INSURANCE BILL Comment:Ancillary determined the test is not needed Cholesterol/HDL Ratio 3.0 0.0 - 4.4 ratio [facility] INSURANCE BILL Comment: T. Chol/HDL Ratio Men Women 1/2 Avg.Risk 3.4 3.3 Avg.Risk 5.0 4.4 2X Avg.Risk 9.6 7.1 3X Avg.Risk 23.4 11.0 FASTING Blood BLOOD SPECIMEN / Unknown 09/03/2018 9:02 AM PRECISION LENS GENERATOR 09/03/2018 Narrative Resulting Agency [facility] [address] [facility] [phone] Gwen Peralta MD LAB - CHEMISTRY ORDERABLES Final Result [facility] INSURANCE BILL [address] [place] [address] * ENDOSCOPY, COLON, DIAGNOSTIC (06/20/2018) Gwen Peralta MD GI PROCEDURE ORDERABLES Fi nal Result * DEXA BONE DENSITY AXIAL SKELETON (09/11/2017 8:45 AM PRECISION LENS GENERATOR) Anatomical Region Laterality Modality Nuclear Medicine 09/11/2017 9:31 AM PRECISION LENS GENERATOR Impressions 09/11/2017 9:32 AM PRECISION LENS GENERATOR Osteopenia of the hips. Normal bone mineral density of the lumbar spine. WORLD HEALTH ORGANIZATION DEFINITIONS NORMAL= T-Score at or above -1.0 SD OSTEOPENIA = T-Score between -1 and -2.5 SD OSTEOPOROSIS = T-Score at or below -2.5 SD Narrative 09/11/2017 9:32 AM PRECISION LENS GENERATOR BONE MINERAL DENSITY STUDY: INDICATION: 62-year-old for osteoporosis screening. FINDINGS: Comparison is made to prior exam from 04/12/2016. The mean bone mineral content of the lumbar spine is 1.062 g/cm2 and T-score -1.0, consistent with normal bone mineral density (previously 1.074 g/cm2 and T-score was -0.9). The mean bone mineral content of the left femoral neck is 0.779 g/cm2 and T-score -1.9, consistent with osteopenic bone mineral density (previously 0.812 g/cm2 and T-score was -1.6). The mean bone mineral content of the left total hip is 0.952 g/cm2 and T-score -0.4, consistent with normal bone mineral density (previously 0.942 g/cm2 and T-score was -0.5). The mean bone mineral content of the right femoral neck is 0.764 g/cm2 and T-score -2.0, consistent with osteopenic bone mineral density (previously 0.860 g/cm2 and T-score was -1.3). The mean bone mineral content of the right total hip is 0.919 g/cm2 and T-score -0.7, consistent with normal bone mineral density (previously 0.902 g/cm2 and T-score was -0.8). FRAX 10 year fracture risk Major osteoporotic fracture: 16.5% Hip fracture: 2.6% Procedure Note Anthony Mckay DO - 09/11/2017 BONE MINERAL DENSITY STUDY: INDICATION: 62-year-old for osteoporosis screening. FINDINGS: Comparison is made to prior exam from 04/12/2016. The mean bone mineral content of the lumbar spine is 1.062 g/cm2 and T-score -1.0, consistent with normal bone mineral density (previously 1.074 g/cm2 and T-score was -0.9). The mean bone mineral content of the left femoral neck is 0.779 g/cm2 and T-score -1.9, consistent with osteopenic bone mineral density (previously 0.812 g/cm2 and T-score was -1.6). The mean bone mineral content of the left total hip is 0.952 g/cm2 and T-score -0.4, consistent with normal bone mineral density (previously 0.942 g/cm2 and T-score was -0.5). The mean bone mineral content of the right femoral neck is 0.764 g/cm2 and T-score -2.0, consistent with osteopenic bone mineral density (previously 0.860 g/cm2 and T-score was -1.3). The mean bone mineral content of the right total hip is 0.919 g/cm2 and T-score -0.7, consistent with normal bone mineral density (previously 0.902 g/cm2 and T-score was -0.8). FRAX 10 year fracture risk Major osteoporotic fracture: 16.5% Hip fracture: 2.6% IMPRESSION Osteopenia of the hips. Normal bone mineral density of the lumbar spine. WORLD HEALTH ORGANIZATION DEFINITIONS NORMAL= T-Score at or above -1.0 SD OSTEOPENIA = T-Score between -1 and -2.5 SD OSTEOPOROSIS = T-Score at or below -2.5 SD us Luiza Ennis MD DEXA ORDERABLES Final Resul t * HEPATITIS C ANTIBODY (05/30/2016 7:47 AM CDT) Hepatitis C Antibody 0.1 0.0 - 0.9 s/co ratio [facility] INSURANCE BILL Comment: Negative: < 0.8 Indeterminate: 0.8 - 0.9 Positive: > 0.9 . The CDC recommends that a positive HCV antibody result be followed up with a HCV Nucleic Acid Amplification test (466570). Blood specimen (specimen) BLOOD SPECIMEN / Unknown 05/30/2016 7:47 AM CDT 05/30/2016 12:38 PM CDT Narrative Resulting Agency Comment [facility] [address] [facility] [phone] us Gwen Peralta MD LAB - CHEMISTRY ORDERABLES Final Result [facility] INSURANCE BILL [address] [place] [address] from Last 3 Months or Most Recently Relevant to Health Maintenance Insurance MEDICARE [employer] Care Teams Skidway Worker Relationship Specialty Start Date End Date Gwen Peralta MD [address] [facility] [address] [place] [phone] PCP - General Family Medicine 08/22/16 Jn Hale MD [address] [facility] [address] [place] [phone] Obstetrics and Gynecology 10/20/13 Cem Douglas MD [address] [facility] [address] [place] [address] [phone] Orthopedic Surgery 11/23/14 Zenaida Slade MD [address] [facility] [address] [place] [phone] Orthopedic Surgery 06/12/16 [place] [address] [facility] [address] [place] [address] Orthopedic Surgery 05/07/17
--- OUTSIDE RECORDS SUMMARY | 2025-04-09 07:53 | XMS_ITS | Encounter Summary ---
Author Organization [facility] Health Address [address] [place] [address] Care Team Providers Care Cook Ship Name Role Phone Jn Hale MD Unavailable [phone] Cem Douglas MD Unavailable Zenaida lSade MD Unavailable [phone] Gwen Peralta MD Primary Care Provider [phone] Dawna Walters MD Unavailable Gwen Peralta MD Unavailable Encounter Details Date Type Department Care Team (Late st Contact Info) Description 02/22/2017 [facility] Gwen Peralta MD [address] [place], [place] [id number] Social History Tobacco Use Types Packs/Day Years Used Date Smoking Tobacco: Never Smokeless Tobacco: Never Alcohol Use Standard Drinks/Week Comments Yes 0 (1 standard drink = 0.6 oz pur e alcohol) Comments No Sex and Gender Information Value Date Recorded Sex Assigned at Not on file Legal Sex Female 5:40 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 Gender Identity Female 10/09/2017 10:10 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 Sexual Orientation Not on file documented as [...] on filedocumented in this encounter Care Teams Cook Ship Relationship Specialty Start Date End Date Gwen Peralta MD [address] [place] [phone] PCP - General Family Medicine 08/22/16 Gwen Peralta MD [address] [place], [place] [id number] PCP - Attributed-Exclusive Choice 02/01/17 02/24/19 Jn Hale MD [address] [facility] [address] [place] [phone] Obstetrics and Gynecology 10/20/13 Cem Douglas MD [address] [facility] [address] [place] [address] [phone] Orthopedic Surgery 11/23/14 Zenaida Slade MD [address] [place] [phone] Orthopedic Surgery 06/12/16 [place] [address] [facility] [address] [place] [address] Orthopedic Surgery 05/07/17 documented as of this encounter
--- OUTSIDE RECORDS SUMMARY | 2025-04-09 07:53 | XMS_ITS | Encounter Summary ---
Author Organization [facility] Health Address [address] [facility] [facility] [place] [address] Care Team Providers Care Oil Dispenser Name Role Phone Matt Nascimento MD Primary Care Provider Unavailab Jn Martinez MD Unavailable [phone] Cem Douglas MD Unavailable [phone] Luiza Ennis MD Primary Care Provider Zenaida Slade MD Unavailable [phone] Gwen Peralta MD Primary Care Provider [phone] Dawna Walters MD Unavailable Gwen Peralta MD Unavailable [phone] Encounter Details Date Type Department Care Team (Late st Contact Info) Description 03/15/2015 Therapy Visit EXTERNAL NON-[facility] DEPT Unknown, Provider Social History Tobacco Use Types Packs/Day Years Used Date Smoking Tobacco: Never Smokeless Tobacco: Never Alcohol Use Standard Drinks/Week Comments Yes 0 (1 standard drink = 0.6 oz pur e alcohol) Comments No Sex and Gender Information Value Date Recorded Sex Assigned at Not on file Legal Sex Female 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 Author Reduce calorie intake to 2000 calories per day Diet No Pasquale on, ORIANA Hardwick Note: exercise documented as of this encounter Visit Diagnoses Not on filedocumented in this encounter Care Teams Oil Dispenser Relationship Specialty Start Date End Date Matt Nascimento MD NEED INFORMATION UPDATED PCP - General 12/26/10 04/11/16 Luiza Enins MD [address] [facility] [address] [place] [address] PCP - General Obstetrics and Gynecology 04/12/16 08/21/16 Gwen Peralta MD [address] [facility] [address] [place] [address] PCP - General Family Medicine 08/22/16 Gwen Peralta MD [address] [facility] [address] [place], [place] [phone] PCP - Attributed-Exclusive Choice 02/01/17 02/24/19 Jn Hale MD [address] [place] [address] [phone] Obstetrics and Gynecology 10/20/13 Cem Douglas MD [address] [phone] Orthopedic Surgery 11/23/14 Zenaida Slade MD [address] [facility] [address] [place] [address] Orthopedic Surgery 06/12/16 [place] [address] [address] Orthopedic Surgery 05/07/17 documented as of this encounter
--- OUTSIDE RECORDS SUMMARY | 2025-04-09 07:53 | XMS_ITS | Clinical Summary ---
Author Organization [facility] Address [address] [place] [address] Phone Care Team Providers Care Sergeant Of Officers Name Role Phone Valeriano Vasquez MD Primary Care Provider Allergies Active Allergy Reactions Criticality Noted Date Comments Penicillins Rash Medium 05/25/2010 Medications levothyroxine (SYNTHROID) 50 mcg tabletIndication s:hypothyroidism Take 1 tablet (50 mcg total) by mouth job coach before breakfast [address] (PROTONIX) 20 mg EC tabletIndication s:acid reflux Take 1 tablet (20 mg total) by mouth 4 (four) times a week M, W, F, Sat 2 Active Vitamin D2 1,250 mcg (50,000 unit) capsuleIndicatio ns:Vitamin D Deficiency Take 1 capsule (50,000 Units total) by mouth every 14 (fourteen) days 2 Active rosuvastatin (CRESTOR) 5 mg tabletIndication s:hyperlipidemia Take 1 tablet (5 mg total) by mouth every morning 3 Active Lactobacillus acidophilus (PROBIOTIC ORAL)Indications :supplement Take 1 tablet by mouth every morning Active calcium citrate/vitamin D3 (CITRACAL + D ORAL)Indications :supplement Take 1 tablet by mouth 2 (two) times a day Active MAGNESIUM ORALIndications: supplement Take 1 tablet by mouth every morning Active loteprednol (LOTEMAX) 0.5 % ophthalmic suspension 5 Active valACYclovir (VALTREX) 1 gram tablet 5 Active Active Problems Problem Noted Date Diagnosed Date Carpal tunnel syndrome of right wrist 01/08/2024 Cubital tunnel syndrome on right 01/08/2024 Infective otitis externa of left ear 04/25/2022 Assessment & Plan (04/25/2022 11:16 AM CDT): Currently resolved Avoid ear cleaning techniques Avoid water to ears Follow up as needed Impacted cerumen of left ear 04/25/2022 Assessment & Plan (04/25/2022 11:17 AM CDT): Avoid ear cleaning techniques Avoid water to ears Follow up as needed Nodule of finger of right hand 09/03/2018 [...] of toe of right leno t 06/15/2016 Toe injury 05/21/2016 Vitamin D deficiency 05/21/2016 Hip hematoma, left 11/23/2014 GERD (gastroesophageal reflux disease) 4 Hypothyroidism 05/18/2011 Overview (02/04/2023): Encounters Date Type Department Care Team Description 03/23/2025 Results Follow-Up [facility] Medicine Orthopaedic Surgery [address] [facility] 2nd Floor [address] [place] [phone] Rafita Rowe MD MRI Knee Right WO Contrast 03/21/2025 6:24 AM CDT - 03/21/2025 11:59 PM CDT Hospital Encounter [facility] [address] [place] [address] Rafita Rowe MD Patellofemoral joint pain, right; Acute pain of right knee Discharge Disposition: Discharge to home or self care 03/17/2025 Orders Only [facility] Medicine Orthopaedic Surgery [address] [facility] 2nd Floor [address] [place] [address] Rafita Rowe MD Chronic pain of right knee; Patellofemoral joint pain, right; Acute pain of right knee 02/12/2025 Orders Only [facility] Medicine Orthopaedic Surgery [address] [facility] [address] [place] [address] Rafita Rowe MD Chronic pain of right knee (Primary Dx) 02/09/2025 1:02 PM CDT - 02/09/2025 11:59 PM CDT Hospital Encounter [facility] [id number] [place] [address] Acute pain of right knee Discharge Disposition: Discharge to home or self care 02/09/2025 11:45 AM CDT Office Visit [facility] Medicine Orthopaedic Surgery [id number] [place] [address] 2nd Floor [address] [place] [address] Rafita Rowe MD Chronic pain of right knee (Primary Dx); Patellofemoral joint pain, right 02/09/2025 Results Follow-Up [facility] Orthopaedic Surgery [address] [place] [address] 2[address] [place] [address] Rafita Rowe MD XR Knee Right 3 Views 01/27/2025 4:15 PM CDT Office Visit [facility] Care at [address] [address] Yanira Obrien NP Laceration of right hand without foreign body, initial encounter (Primary Dx) 01/18/2025 2:10 PM CDT Ancillary Procedure [facility] Medicine Orthopaedic Surgery [address] [facility] 1st Floor [address] [place] [address] 01/18/2025 2:00 PM CDT Procedure visit [facility] Medicine Orthopaedic Surgery [address] [facility] 1st Floor [address] [place] [address] Dieter Feldman MD Neuroma (Primary Dx); Paresthesia and pain of right extremity from Last 3 Months Immunizations Immunization Administration Dates Next Due COVID-19 mRNA ([employer]) 0.3 m L (30 mcg) vaccine (12 years and up) 06/10/2023 Influenza, Quad, Adjuvantate d, Intramuscular 06/10/2023,06/22/2022 Influenza, Quadrivalent, Hig h Dose, Preservative Free, Intrr 05/02/2021,05/08/2020 Influenza, Trivalent, Adjuva nted, Intramuscular 05/02/2018 Influenza, Unspecified 06/10/2023,2020,05/08/2020,05/02 Moderna SARS-CoV-2 Monovalen t Vaccination (12+ YRS) 11/22/2021,06/09/2021,10/17/2020,09/19 Moderna Sars-cov-2 Bivalent Vaccine 50 Mcg/0.5 mL (12+ YRS)-Blue/Kelly 07/10/2022 Pneumococcal Conjugate PCV 13 08/22/2016 Pneumococcal Polysaccharide PPV23 02/27/2013 RSV Vaccine, Pref, Recombina nt, Subunit, Adjuvanted, PF, IM (Arexvy) 06/10/2023 ZOSTER LIVE 07/06/2013 ZOSTER Recombinant 03/16/2021,01/14/2021 Surgical History Surgery Date Site/Laterality Comments FLUORO GUIDED INJECTION SHOULDER RIGHT 01/01/2024 Right COLONOSCOPY last one 12/2023, Timo SECTION 08/19/1983 - 08/18/1984 FLUORO GUIDED INJECTION SHOULDER RIGHT 11/27/2024 Right Medical History Medical History Date Comments GERD (gastroesophageal reflux disease) Hypothyroidism Family History Medical History Relation Name Comments Anesthesia problems Neg Hx Social History Tobacco Use Types Packs/Day Years Used Date Smoking Tobacco: Never Passive Smoke Exposure: Never Smokeless Tobacco: Never Tobacco Cessation:Counseling Given: Not Answered AUDIT-C Answer Date Recorded Q1: How often [...] on file Legal Sex Female 2:04 PM 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 LATHER Gender Identity Female 12/23/2023 11:53 AM CDT Sexual Orientation Straight 12/23/2023 11 :53 AM CDT Obstetrics History Last Filed Vital Signs Vital Sign Reading Time Taken Comments Blood Pressure 132/80 01/27/2025 4:13 PM CDT Pulse 77 01/27/2025 4:13 PM CDT Temperature 36.3 C (97.4 F) 01/27/2025 4:13 PM CDT Respiratory Rate 16 01/27/2025 4:13 PM CDT Oxygen Saturation 97% 01/27/2025 4:1 3 PM CDT Inhaled Oxygen Concentration - - Weight 63.5 kg (140 lb) 03/21/2025 6:32 AM CDT patient reported weight Height 165.1 cm (5' 5) 03/21/2025 6:32 AM CDT Body Mass Index 23.3 03/21/2025 6:32 AM CDT Plan of Treatment Health Maintenance Due Date Last Done Comments Colon Cancer Screening-Colonoscopy 1955 Depression Screening 1955 Hepatitis C Screening 1955 Hepatitis B Screening 1971 Well Visit 65+ 2018 Osteoporosis Screening-Bone Density Scan 09/11/2019 09/11/2017, 09/11/2017 Breast Cancer Screening-Mammogram 06/16/2020 06/16/2019, 06/03/2018, 04/30/2017, Additional history exists Pneumococcal vaccine 65+ (3 of 3 - PCV20 or PCV21) 08/22/2021 08/22/2016, 02/27/2013 Covid-19 Vaccine (2023-2 5 season) 2024 06/11/2024, 06/10/2023, 07/10/2022, Additional history exists Fall Risk Assessment 03/31/2025 03/31/2024 Influenza Vaccine (#1) 2025 , 06/10/2023, 06/10/2023, Additional history exists DTaP/Tdap/Td Vaccine (2 - Td or Tdap) 12/29/2034 12/29/2024 Zoster Vaccine Completed 03/16/2021, 12/18, 07/06/2013 Procedures Procedure Name Priority Date/Time Associated Diagnosis Comments MRI KNEE RIGHT WO CONTRAST Schedule Routine, Read Routine (OP Routine) 03/21/2025 7:00 AM CDT Patellofemoral joint pain, right Acute pain of right knee XR KNEE RIGHT 3 VIEWS Schedule Routine, Read Routine (OP Routine) 02/09/2025 1:10 PM CDT Acute pain of right knee LACERATION REPAIR Routine 01/27/2025 4:3 1 PM CDT Laceration of right hand without foreign body, initial encounter POCUS SOFT TISSUE OF THE UPPER OR LOWER EXTREMITY Schedule Routine, Read Routine (OP Routine) 01/18/2025 2:09 PM CDT Paresthesia and pain of right extremity from Last 3 Months Results * MRI Knee Right WO Contrast (03/21/2025 7:00 AM CDT) Anatomical Region Laterality Modality Lower Extremities Right Magnetic Reson ance 03/21/2025 8:20 AM CDT Impressions 03/21/2025 8:20 AM CDT 1. Small, multiloculated, partially ruptured Burton's cyst. 2. Mild to moderate patellofemoral compartment chondrosis. 3. Small, nondisplaced undersurface tear of the body and posterior horn of the medial meniscus. Electronically signed by: Nilesh Peres M.D. Narrative 03/21/2025 8:20 AM CDT EXAMINATION: 1. MRI right knee without contrast HISTORY: 6 months anteromedial knee pain, posterior pain pain TECHNIQUE: Multiplanar multisequence MR examination of the right knee was performed without contrast . COMPARISON: 02/09/2025 radiographs FINDINGS: In the medial compartment, very subtle undersurface irregularity along the body and posterior horn/body junction of the medial meniscus that could represent a tiny undersurface horizontal tear. There is no focal chondrosis or subchondral edema. In the lateral compartment, the meniscus is intact. There is no focal chondrosis or subchondral edema. In the patellofemoral compartment, there is mild diffuse partial thickness chondrosis, with areas of deep chondral fissuring and minimal subchondral edema in the medial patellar facet and similar deep, near full-thickness chondrosis a small portion of the medial trochlea The cruciate and collateral ligaments are intact. Possible chronic low-grade proximal medial collateral ligament sprain. Distal quadriceps tendon is minimally thickened with an enthesophyte suggestive of chronic insertional tendinopathy.. The popliteus tendon is normal. Multiloculated small, partially ruptured Burton's cyst.. No loose bodies are identified. No acute fracture, stress fracture, or suspicious marrow replacing lesion. Procedure Note Nilesh Peres MD - 03/21/2025 EXAMINATION: 1. MRI right knee without contrast HISTORY: 6 months anteromedial knee pain, posterior pain pain TECHNIQUE: Multiplanar multisequence MR examination of the right knee was performed without contrast . COMPARISON: 02/09/2025 radiographs FINDINGS: In the medial compartment, very subtle undersurface irregularity along the body and posterior horn/body junction of the medial meniscus that could represent a tiny undersurface horizontal tear. There is no focal chondrosis or subchondral edema. In the lateral compartment, the meniscus is intact. There is no focal chondrosis or subchondral edema. In the patellofemoral compartment, there is mild diffuse partial thickness chondrosis, with areas of deep chondral fissuring and minimal subchondral edema in the medial patellar facet and similar deep, near full-thickness chondrosis a small portion of the medial trochlea The cruciate and collateral ligaments are intact. Possible chronic low-grade proximal medial collateral ligament sprain. Distal quadriceps tendon is minimally thickened with an enthesophyte suggestive of chronic insertional tendinopathy.. The popliteus tendon is normal. Multiloculated small, partially ruptured Burton's cyst.. No loose bodies are identified. No acute fracture, stress fracture, or suspicious marrow replacing lesion. IMPRESSION: 1. Small, multiloculated, partially ruptured Burton's cyst. 2. Mild to moderate patellofemoral compartment chondrosis. 3. Small, nondisplaced undersurface tear of the body and posterior horn of the medial meniscus. Electronically signed by: Nilesh Peres M.D. Rafita Rowe MD IMG MRI PROCEDURES Final R esult * XR Knee Right 3 Views (02/09/2025 1:10 PM CDT) Anatomical Region Laterality Modality Lower Extremities, Knee Right Computed Radiography 02/09/2025 1:43 PM CDT Impressions 02/09/2025 5:27 PM CDT Normal right knee radiographs. Dictated by: Louie Miramontes MD The radiology attending physician has personally reviewed this study, and had reviewed and/or edited this written report and agrees with it. Electronically signed by: Elsy Tran MD Narrative 02/09/2025 5:27 PM CDT EXAMINATION: XR KNEE RIGHT 3 VIEWS HISTORY: Right knee pain FINDINGS: 3 radiographs of the right knee are submitted. No comparison available. Normal alignment. No acute fracture. No effusion. The joint spaces are normal. Procedure Note Elsy Tran MD - 02/09/2025 EXAMINATION: XR KNEE RIGHT 3 VIEWS HISTORY: Right knee pain FINDINGS: 3 radiographs of the right knee are submitted. No comparison available. Normal alignment. No acute fracture. No effusion. The joint spaces are normal. IMPRESSION: Normal right knee radiographs. Dictated by: Louie Miramontes MD The radiology attending physician has personally reviewed this study, and had reviewed and/or edited this written report and agrees with it. Electronically signed by: lEsy Tran MD Rafita Rowe MD IM XR PROCEDURES Final Re sult * Laceration Repair (01/27/2025 4:31 PM CDT) Narrative Julian Olmos MD - 01/27/2025 4:31 PM CDT Julian Olmos MD 01/27/2025 11:02 PM Laceration Repair Date/Time: 01/27/2025 4:31 PM Performed by: Yanira Obrien NP Authorized by: Yanira Obrien NP Consent: Consent obtained: Verbal Consent given by: Patient Risks, benefits, and alternatives were discussed: yes Risks discussed: Infection, pain, retained foreign body, tendon damage, vascular damage, poor wound healing, nerve damage, need for additional repair and poor cosmetic result Alternatives discussed: Referral [place] protocol: Procedure explained and questions answered to patient or proxy's satisfaction: yes Imaging studies available: Imaging not available in building no foreign body visualized or palpated. Immediately prior to procedure, a time out was called: yes Patient identity confirmed: Verbally with patient Anesthesia: Anesthesia method: Local infiltration Local anesthetic: Lidocaine 1% w/o epi Laceration details: Location: Hand Hand location: R palm Pre-procedure details: Preparation: Patient was prepped and draped in usual sterile fashion Treatment: Area cleansed with: Chlorhexidine Amount of cleaning: Standard Irrigation solution: Sterile saline Irrigation method: Syringe Skin repair: Repair method: Sutures Suture size: 5-0 Suture technique: Simple interrupted Number of sutures: 5 Approximation: Approximation: Close Repair type: Repair type: Simple Post-procedure details: Dressing: Antibiotic ointment and non-adherent dressing Procedure completion: Tolerated well, no immediate complications us Yanira Obrien NP IN CLINIC/BEDSIDE ORDERABLES Fi nal Result * POCUS Soft Tissue of the Upper or Lower Extremity (01/18/2025 2:09 PM CDT) Narrative [facility] - 01/18/2025 2:09 PM CDT This procedure was performed and interpreted by the provider. Please refer to the provider's procedure/OR operative note for results. us Dieter Feldman MD POCUS ORDERABLES Final R esult [facility] from Last 3 Months Insurance [facility] MEDICARE MEDICARE [facility] MEDICARE AARP Advance Directives For more information, please contact: [phone] Documents on File Type Date Recorded Patient Gym Attendant Expl anation Power of Oxyacetylene Welder 03/31/2024 6:26 AM Care Teams Sergeant Of Officers Relationship Specialty Start Date End Date Valeriano Vasquez MD [address] [facility] [address] [place] [address] PCP - General Family Medicine 01/27/25
--- OUTSIDE RECORDS SUMMARY | 2025-04-09 07:53 | XMS_ITS | Encounter Summary ---
Author Organization [facility] Address [address] [place] [address] Phone Care Team Providers Care Leadership Coach Name Role Phone Valeriano Vasquez MD Primary Care Provider Encounter Details Date Type Department Care Team (Latest Contact Info) Description 02/09/2025 Results Follow-Up [facility] Orthopaedic Surgery [address] [facility] 2nd Floor [address] [place] [address] Rafita Rowe MD [address] [facility] [address] [place] [address] XR Knee Right 3 Views Social History Tobacco Use Types Packs/Day Years [...] on file Legal Sex Female 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 I recommend physical therapy. If in agreement, we can send a referral to any preferred location, or we can make recommendations in the [place] area. Please share any thoughts and questions regarding these results, recommendation for physical therapy. Please also share if there is a location for physical therapy preferred. documented in this encounter Plan of Treatment Not on file documented as of this encounter Visit Diagnoses Not on filedocumented in this encounter Care Teams Leadership Coach Relationship Specialty Start Date End Date Valeriano Vasquez MD [address] [facility] [address] [place] [address] PCP - General Family Medicine 01/27/25 documented as of this encounter
--- OUTSIDE RECORDS SUMMARY | 2025-04-09 07:53 | XMS_ITS | Encounter Summary ---
Author Organization [facility] Address [address] [facility] [place] [address] Care Team Providers Care Brush Fabrication Supervisor Name Role Phone Jn Hale MD Unavailable [phone] Cem Douglas MD Unavailable Zenaida Slade MD Unavailable [phone] Gwen Peralta MD Primary Care Provider [phone] Dawna Walters MD Unavailable [phone] Gwen Peralta MD Unavailable Encounter Details Date Type Department Care Team (Late st Contact Info) Description 09/03/2018 [facility]PT Gwen Peralta MD [address] [facility] [address] [place], [place] [id number] Social History Tobacco Use Types Packs/Day Years Used Date Smoking Tobacco: Never Smokeless Tobacco: Never Alcohol Use Standard Drinks/Week Comments Yes 0 (1 standard drink = 0.6 oz pur e alcohol) Comments No Sex and Gender Information Value Date Recorded Sex Assigned at Not on file Legal Sex Female 5:40 AM SALES HOST Gender Identity Female 10/09/2017 10:10 AM SALES HOST Sexual Orientation Not on file documented as [...] on filedocumented in this encounter Care Teams Brush Fabrication Supervisor Relationship Specialty Start Date End Date Gwen Peralta MD [address] [place] [id number] PCP - General Family Medicine 08/22/16 Gwen Peralta MD [address] [facility] [address] [place], [place] [id number] PCP - Attributed-Exclusive Choice 02/01/17 02/24/19 Jn Hale MD [address] [facility] [address] [place] [phone] Obstetrics and Gynecology 10/20/13 Cem Douglas MD [address] [facility] [address] [place] [phone] Orthopedic Surgery 11/23/14 Zenaida Slade MD [address] [place] [address] Orthopedic Surgery 06/12/16 [place] [address] [facility] [address] [place] [address] Orthopedic Surgery 05/07/17 documented as of this encounter
== END 2025-04-09 07:50 | disposition home or self-care (01) ==
LOC: ANHFOHIMG 07:51
PROVIDERS: PCP Family Medicine; Visit Provider Obstetrics & Gynecology Gynecology
DX: Z12.31 Encounter for screening mammogram for malignant neoplasm of breast (principal)
CPT/HCPCS: 77063; 77067

== ENCOUNTER 2025-05-21 15:02 | Outpatient (CLI) | payer MEDICARE, SELFPAY ==
--- OUTSIDE RECORDS SUMMARY | 2025-05-21 15:08 | XMS_ITS | Clinical Summary ---
Author Organization [facility] Address [address] [place] [address] Phone Care Team Providers Care Mechatronics Technician Name Role Phone Valeriano Vasquez MD Primary Care Provider Allergies Active Allergy Reactions Criticality Noted Date Comments Penicillins Rash,Hives Medium 05/25/2010 Medications levothyroxine (SYNTHROID) 50 mcg tabletIndication s:hypothyroidism Take 1 tablet (50 mcg total) by mouth cyber security architect before breakfast [address] (PROTONIX) [...] 5 Active valACYclovir (VALTREX) 1 gram tablet Active Hospital, Clinic, or Other Facility Administered Medication Ordered Dose Route Frequency Start Date End Date Status BUPivacaine HCl (MARCAINE) 0.25 % (2.5 mg/mL) injection 3 mLIndications:Righ t knee pain, unspecified chronicity,Degener ative tear of meniscus of right knee,Patellofemora l chondrosis of right knee 3 mL OTHER One-Time Injection 05/11/2025 05/11/2025 Ended lidocaine (XYLOCAINE) 10 mg/mL (1 %) injection 3 mLIndications:Admi nistration of Local Anesthesia 3 mL One-Time Injection 05/11/2025 05/11/2025 Ended triamcinolone (KENALOG) 40 mg/mL injection 80 mgIndications:Righ t knee pain, unspecified chronicity,Degener ative tear of meniscus of right knee,Patellofemora l chondrosis of right knee 80 mg intra-artic One-Time Injection 05/11/2025 05/11/2025 Ended Active Problems Problem Noted Date Diagnosed Date [...] Encounters Date Type Department Care Team Description 05/11/2025 11:00 AM CDT Office Visit [facility] Orthopaedic Surgery [address] [place] [address] 2nd [address] [place] [address] Rafita Rowe MD Right knee pain, unspecified chronicity (Primary Dx); 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; Patellofemoral chondrosis of right knee 03/23/2025 Results Follow-Up [facility] Orthopa[facility] Surgery [address] [place] [address] 2nd Floor [address] [place] [address] Rafita Rowe MD MRI Knee Right WO Contrast 03/21/2025 6:24 AM CDT - 03/21/2025 11:59 PM CDT Hospital Encounter [facility] [address] [place] [address] Rafita Rowe MD Patellofemoral joint pain, right; Acute pain of right knee Discharge Disposition: Discharge to home or self care 03/17/2025 Orders Only [facility] Orthopaedic Surgery [address] [place] [address] Floor [address] [place] [address] Rafita Rowe MD Chronic pain of right knee; Patellofemoral joint pain, right; Acute pain of right knee from Last 3 Months Immunizations Immunization Administration Dates Next Due COVID-19 mRNA (mktg) 0.3 m L (30 mcg) vaccine (12 [...] on file Legal Sex Female 2:04 PM COMPUTER TECH Gender Identity Female 12/23/2023 11:53 AM CDT [...] - PCV20 or PCV21) 08/22/2021 08/22/2016, 02/27/2013 Fall Risk Assessment 03/31/2025 03/31/2024 Covid-19 Vaccine (8 2023-2 5 season) 2025 06/11/2024, 06/10/2023, 07/10/2022, Additional history exists Influenza Vaccine (#1) 2025 , 06/10/2023, 06/10/2023, Additional history exists DTaP/Tdap/Td Vaccine (2 - Td or Tdap) 12/29/2034 12/29/2024 Zoster Vaccine Completed 03/16/2021, 12/18, 07/06/2013 Procedures Procedure Name Priority Date/Time Associated Diagnosis Comments MA ARTHROCENTESIS ASPIR&/INJ MAJOR JT/BURSA W/O US Routine 05/11/2025 11:00 AM CDT Right knee pain, unspecified chronicity 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 MRI KNEE RIGHT WO CONTRAST Schedule Routine, Read Routine (OP Routine) 03/21/2025 7:00 AM CDT Patellofemoral joint pain, right Acute pain of right knee from Last 3 Months Results * MA ARTHROCENTESIS ASPIR&/INJ MAJOR JT/BURSA W/O US (05/11/2025 11:00 AM CDT) Rafita Aranda MD - 05/11/2025 11:00 AM CDT Rafita Rowe MD 05/11/2025 5:27 PM Large Joint Injection: R knee Performed by: Rafita Rowe MD Authorized by: Rafita Rowe MD Large Joint Injection/Aspiration: Consent Given by: Patient Site marked: the procedure site was marked Timeout: prior to procedure the correct patient, procedure, and site was verified Verbal consent obtained: Yes Written consent obtained: No Supporting Documentation: Indications: Pain Procedure Details: Location: Knee Site: R knee Prep: patient was prepped using a clean technique Needle Size: 25 G Approach: Anterolateral Medications: 3 mL BUPivacaine HCl 0.25 % (2.5 mg/mL); 3 mL lidocaine 10 mg/mL (1 %); 80 mg triamcinolone 40 mg/mL Patient tolerance: Patient tolerated the procedure well with no immediate complications Rafita Rowe MD IN CLINIC/BEDSIDE ORDERABL ES Final Result * MRI Knee Right WO Contrast (03/21/2025 [...] MD IMG MRI PROCEDURES Final R esult from Last 3 Months Insurance [facility] MEDICARE MEDICARE [facility] MEDICARE [facility] Advance Directives For more information, please contact: [phone] Documents on File Type Date Recorded Patient Toll Line Repairer Expl anation Power of Clinical Psychology Professor 03/31/2024 6:26 AM Care Teams Mechatronics Technician Relationship Specialty Start Date End Date Valeriano Vasquez MD [address] [facility] [address] [place] [address] PCP - General Family Medicine 01/27/25
--- OUTSIDE RECORDS SUMMARY | 2025-05-21 15:08 | XMS_ITS | Clinical Summary ---
Author Organization [facility] Address [address] [facility] [place] [address] Care Team Providers Care Pairer Inspector Name Role Phone Jn Hale MD Unavailable [phone] Cem Douglas MD Unavailable [phone] Zenaida Slade MD Unavailable [phone] Gwen Peralta MD Primary Care Provider [phone] Dawna Walters MD Unavailable [phone] Source Comments [facility],non-owned Affiliates and Associated Physician Practices is amultiple site organization consisting of ambulatory clinics and hospital sitesin [place], [place], [place] and [place]. This disclosure is being madepursuant to the Care Everywhere program and may not contain all information available regarding this patient. Last updated 18.[facility] Allergies Active Allergy Reactions Criticality Noted Date [...] 3 8 Active vitamin D, ergocalciferol, (DRISDOL) 37839 UNITS capsule Take 50,000 Units by mouth [...] on file Legal Sex Female 5:40 AM LASER PRINTING OPERATOR Gender Identity Female 10/09/2017 10:10 AM LASER PRINTING OPERATOR Sexual Orientation Not on file Last Filed Vital Signs Vital Sign Reading Time Taken Comments Blood Pressure 121/63 09/03/2018 8:31 AM LASER PRINTING OPERATOR Pulse 67 09/03/2018 8:31 AM LASER PRINTING OPERATOR Temperature 36.8 C (98.2 F) 09/03/2018 8:31 AM LASER PRINTING OPERATOR Respiratory Rate 16 04/12/2015 9:12 AM CDT Oxygen Saturation 97% 09/03/2018 8:31 AM LASER PRINTING OPERATOR Inhaled Oxygen Concentration - - Weight 64.9 kg (143 lb) 09/03/2018 8:31 AM LASER PRINTING OPERATOR Height 165.1 cm (5' 5) 09/03/2018 8:31 AM LASER PRINTING OPERATOR Body Mass Index 23.8 09/03/2018 8:31 AM LASER PRINTING OPERATOR Plan of Treatment Health Maintenance Due Date [...] 09/03/2023 09/03/2018, 12/2017, 05/30/2016, Additional history exists DEPRESSION SCREENING 08/19/2024 COVID-19 VACCINE ( season) 2025 INFLUENZA VACCINE (#1) 2025 , 05/08/2020, 05/02/2018, Additional history exists Respiratory Syncytial Virus (RSV) Vaccine Pt: or over 60 yrs (1 - 1-dose 75+ series) 02/01/2028 COLON MONITORING 06/20/2028 06/20/2018, , 12/16/2012 COLONOSCOPY - COLON CA SCREENING 06/20/2028 06/20/2018, 12/16/2012, 12/16/2012, Additional history exists Colorectal Cancer Screening 06/20/2028 HEPATITIS C SCREENING Completed 05/30/2016 BONE DENSITY TESTING Completed 09/11/2017, 04/12/20 16 ZOSTER VACCINE Completed 03/16/2021, 12/18, 07/06/2013 HEPATITIS [...] PROFILE W TCHOL/HDL Routine 09/03/2018 9:02 AM LASER PRINTING OPERATOR Screening cholesterol level ENDOSCOPY, COLON, DIAGNOSTIC Routine 06/20/2018 DEXA BONE DENSITY AXIAL SKELETON Routine 09/11/2017 8:45 AM LASER PRINTING OPERATOR Post-menopausal Osteopenia, unspecified location HEPATITIS C ANTIBODY [...] participate in the care of your patient. [facility] utilizes Datagu[employer] as a reminder system to notify patients [...] LIPID PROFILE W TCHOL/HDL (09/03/2018 9:02 AM LASER PRINTING OPERATOR) Cholesterol 217(H) 100 - 199 mg/dL [facility] [...] BLOOD SPECIMEN / Unknown 09/03/2018 9:02 AM LASER PRINTING OPERATOR 09/03/2018 Narrative Resulting Agency [facility] [address] [facility] [id number] Gwen Peralta MD LAB - CHEMISTRY ORDERABLES Final Result [facility] INSURANCE BILL [address] [place] [address] * ENDOSCOPY, COLON, DIAGNOSTIC (06/20/2018) Gwen Peralta MD GI PROCEDURE ORDERABLES Fi nal Result * DEXA BONE DENSITY AXIAL SKELETON (09/11/2017 8:45 AM LASER PRINTING OPERATOR) Anatomical Region Laterality Modality Nuclear Medicine 09/11/2017 9:31 AM LASER PRINTING OPERATOR Impressions 09/11/2017 9:32 AM LASER PRINTING OPERATOR Osteopenia of the hips. Normal bone mineral density of the lumbar spine. [employer] DEFINITIONS NORMAL= T-Score at or above -1.0 SD OSTEOPENIA = T-Score between -1 and -2.5 SD OSTEOPOROSIS = T-Score at or below -2.5 SD Narrative 09/11/2017 9:32 AM LASER PRINTING OPERATOR BONE MINERAL DENSITY STUDY: INDICATION: 62-year-old for [...] with a HCV Nucleic Acid Amplification test ([id number]). Blood specimen (specimen) BLOOD SPECIMEN / Unknown 05/30/2016 7:47 AM CDT 05/30/2016 12:38 PM CDT Narrative Resulting Agency [facility] [address] [facility] [id number] [place] Gwen Peralta MD LAB - CHEMISTRY ORDERABLES Final Result [facility] INSURANCE BILL [address] [place] [address] from Last 3 Months or Most Recently Relevant to Health Maintenance Insurance MEDICARE [facility] [place] [address] [facility] Care Teams Pairer Inspector Relationship Specialty Start Date End Date Gwen Peralta MD [address] [facility] [address] [place] [address] PCP - General Family Medicine 08/22/16 Jn Hale MD [address] [facility] [address] [place] [address] [id number] Obstetrics and Gynecology 10/20/13 Cem Douglas MD [address] [facility] [address] [place] [phone] Orthopedic Surgery 11/23/14 Zenaida Slade MD [address] [facility] [address] [place] [address] Orthopedic Surgery 06/12/16 [place] [address] [facility] [address] [place] [address] Orthopedic Surgery 05/07/17
--- OUTSIDE RECORDS SUMMARY | 2025-05-21 15:08 | XMS_ITS | Encounter Summary ---
Author Organization [facility] Address [address] [facility] [place] [address] Care Team Providers Care Freight Separator Name Role Phone Jn Hale MD Unavailable [phone] Cem Douglas MD Unavailable Zenaida Slade MD Unavailable [phone] Gwen Peralta MD Primary Care Provider [phone] Dawna Walters MD Unavailable [phone] Gwen Peralta MD Unavailable [phone] Encounter Details Date Type Department Care Team (Late st Contact Info) Description 02/22/2017 [facility] Gwen Peralta MD [address] [facility] [address] [address] [place], [place] [id number] Social History Tobacco Use Types Packs/Day Years Used Date Smoking Tobacco: Never Smokeless Tobacco: Never Alcohol Use Standard Drinks/Week Comments Yes 0 (1 standard drink = 0.6 oz pur e alcohol) Comments No Sex and Gender Information Value Date Recorded Sex Assigned at Not on file Legal Sex Female 5:40 AM BARK SKINNER Gender Identity Female 10/09/2017 10:10 AM BARK SKINNER Sexual Orientation Not on file documented as [...] on filedocumented in this encounter Care Teams Freight Separator Relationship Specialty Start Date End Date Gwen Peralta MD [address] [place] [address] PCP - General Family Medicine 08/22/16 Gwen Peralta MD [address] [facility] [address] [place], [place] [phone] PCP - Attributed-Exclusive Choice 02/01/17 02/24/19 Jn Hale MD [address] [facility] [address] [place] [phone] Obstetrics and Gynecology 10/20/13 Cem Douglas MD [address] [facility] [address] [place] [phone] Orthopedic Surgery 11/23/14 Zenaida Slade MD [address] [place] [address] Orthopedic Surgery 06/12/16 [place] [address] [facility] [address] [place] [address] Orthopedic Surgery 05/07/17 documented as of this encounter
--- OUTSIDE RECORDS SUMMARY | 2025-05-21 15:08 | XMS_ITS | Encounter Summary ---
Author Organization [facility] Address [address] [facility] [place] [address] Care Team Providers Care Batt Machine Operator Name Role Phone Matt Nascimento MD Primary Care Provider Unavailab Jn Martinez MD Unavailable [phone] Cem Douglas MD Unavailable [phone] Luiza Ennis MD Primary Care Provider Zenaida Slade MD Unavailable [phone] Gwen Peralta MD Primary Care Provider [phone] Dawna Walters MD Unavailable Gwen Peralta MD [...] on file Legal Sex Female 5:[address]FEREE Gender Identity Female 10/09/2017 10:[address] REFEREE Sexual Orientation Not on file documented as of this encounter Plan of Treatment Not on file documented as of this encounter Goals Goal Patient Goal Type Associated Problems Recent Progress Patient-Stated? Author Reduce calorie intake to 2000 calories per day Diet No Pasquale on, ORIANA Hardwick Note: exercise documented as of this encounter Visit Diagnoses Not on filedocumented in this encounter Care Teams Batt Machine Operator Relationship Specialty Start Date End Date Matt Nascimento MD NEED INFORMATION UPDATED PCP - General 12/26/10 04/11/16 Luiza Ennis MD [address] [facility] [address] [place] [address] PCP - General Obstetrics and Gynecology 04/12/16 08/21/16 Gwen Peralta MD [address] [facility] [address] [place] [address] PCP - General Family Medicine 08/22/16 Gwen Peralta MD [address] [facility] [address] [place], [place] [phone] PCP - Attributed-Exclusive Choice 02/01/17 02/24/19 Jn Hale MD [address] [place] [phone] Obstetrics and Gynecology 10/20/13 Cem Douglas MD [address] [phone] Orthopedic Surgery 11/23/14 Zenaida Slade MD [address] [facility] [address] [place] [address] Orthopedic Surgery 06/12/16 [place] [address] [address] Orthopedic Surgery 05/07/17 documented as of this encounter
--- OUTSIDE RECORDS SUMMARY | 2025-05-21 15:08 | XMS_ITS | Encounter Summary ---
Author Organization [facility] Address [address] [facility] [place] [address] Care Team Providers Care Hook Up Driver Name Role Phone Jn Hale MD Unavailable [phone] Cem Douglas MD Unavailable Zenaida Slade MD Unavailable [phone] Gwen Peralta MD Primary Care Provider [phone] Dawna Walters MD Unavailable Gwen Peralta MD Unavailable Encounter Details Date Type Department Care Team (Late st Contact Info) Description 09/03/2018 [facility] Gwen Peralta MD [address] [facility] [address] [place], [place] [phone] Social History Tobacco Use Types Packs/Day Years Used Date Smoking Tobacco: Never Smokeless Tobacco: Never Alcohol Use Standard Drinks/Week Comments Yes 0 (1 standard drink = 0.6 oz pur e alcohol) Comments No Sex and Gender Information Value Date Recorded Sex Assigned at Not on file Legal Sex Female 5:40 AM COMPUTATIONAL THEORY SCIENTIST Gender Identity Female 10/09/2017 10:10 AM COMPUTATIONAL THEORY SCIENTIST Sexual Orientation Not on file documented as [...] on filedocumented in this encounter Care Teams Hook Up Driver Relationship Specialty Start Date End Date Gwen Peralta MD [address] [place] [address] PCP - General Family Medicine 08/22/16 Gwen Peralta MD [address] [facility] [address] [place], [place] [phone] PCP - Attributed-Exclusive Choice 02/01/17 02/24/19 Jn Hale MD [address] [facility] [address] [place] [phone] Obstetrics and Gynecology 10/20/13 Cem Douglas MD [address] [facility] [address] [place] [phone] Orthopedic Surgery 11/23/14 Zenaida Slade MD [address] [place] [address] Orthopedic Surgery 06/12/16 [place] [address] [facility] [address] [place] [address] Orthopedic Surgery 05/07/17 documented as of this encounter
--- OUTSIDE RECORDS SUMMARY | 2025-05-21 15:08 | XMS_ITS | Encounter Summary ---
Author Organization [facility] Health Address [address] [facility] [place] [address] Care Team Providers Care Hops Farmworker Name Role Phone Matt Nascimento MD Primary Care Provider Unavailab Jn Martinez MD Unavailable [phone] Cem Douglas MD Unavailable Luiza Ennis MD Primary Care Provider Zenaida Slade MD Unavailable [phone] Gwen Peralta MD Primary Care Provider [phone] Dawna Walters MD Unavailable [phone] Gwen Peralta MD Unavailable [phone] Encounter Details Date Type Department Care Team [...] on file Legal Sex Female 5:40 AM BROACHER Gender Identity Female 10/09/2017 10:10 AM BROACHER Sexual Orientation Not on file documented as [...] on filedocumented in this encounter Care Teams Hops Farmworker Relationship Specialty Start Date End Date Matt Nascimento MD NEED INFORMATION UPDATED PCP - General 12/26/10 04/11/16 Luiza Ennis MD [address] [id number] PCP - General Obstetrics and Gynecology 04/12/16 08/21/16 Gwen Peralta MD [address] [facility] [address] [place] [address] PCP - General Family Medicine 08/22/16 Gwen Peralta MD [address] [place] [address] [address] [place], [place] [phone] PCP - Attributed-Exclusive Choice 02/01/17 02/24/19 Jn Hale MD [address] [place] [address] [place] [address] Obstetrics and Gynecology 10/20/13 Cem Douglas MD [address] [facility] [address] [place] [address] Orthopedic Surgery 11/23/14 Zenaida Slade MD [address] [facility] [address] [place] [address] Orthopedic Surgery 06/12/16 [place] [address] [place] [phone] Orthopedic Surgery 05/07/17 documented as of this encounter
--- OUTSIDE RECORDS SUMMARY | 2025-05-21 15:08 | XMS_ITS | Encounter Summary ---
Author Organization [facility] Address [address] [place] [address] Phone Care Team Providers Care Color Developer Name Role Phone Valeriano Vasquez MD Primary Care Provider Encounter Details Date Type Department Care Team (Latest Contact Info) Description 03/23/2025 Results Follow-Up [facility] Orthopaedic Surgery [address] [facility] 2nd Floor [address] [place] [address] Rafita Rowe MD [address] [facility] [address] [place] [address] MRI Knee Right WO Contrast [...] on file Legal Sex Female 2:04 PM HEAD CHEF Gender Identity Female 12/23/2023 11:53 AM CDT [...] on filedocumented in this encounter Care Teams Color Developer Relationship Specialty Start Date End Date Valeriano Vasquez MD [address] [facility] [address] [address] PCP - General Family Medicine 01/27/25 documented as of this encounter
--- NOTE | 2025-06-07 11:28 | P.PCNHOL_ITS ---
Holter/Event Monitor Holter/Event Monitor Date of procedure: 05/21/25 Holter/Event Procedure: 3-7 Day Holter Monitor Indications: Cardia arrhythmia Conclusion: 1. 7 days holter monitor on 05/21/25. 2. Predominant rhythm is sinus rhtyhm. HR range 45-197 bpm; average 71 bpm. 3. There are rare premature supraventricular complexes, rare supraventricular couplets, and rare supraventricular triplets. There are 4 episodes of supraventricular tachycardia with fastest at 197 bpm and longest lasting 18 beats. 4. There are occasional premature ventricular complexes and rare ventricular couplets, longest ventricular bigeminy was 10.2 seconds and longest ventricular trigeminy was 16.6 seconds. No ventricular tachycardia. 5. No significant pauses greater than 3 seconds. 6. Patient reports 4 episodes of symptoms of irregular beats, heart racing, shortness of breath, need to cough which demonstrate sinus rhythm, HR range 67- 116 bpm with 4 episodes with PVC.
== END 2025-05-21 15:03 | disposition home or self-care (01) ==
LOC: ANHCARD 15:06
PROVIDERS: PCP Family Medicine; Visit Provider Family Medicine
DX: I49.9 Cardiac arrhythmia, unspecified (principal); R06.81 Apnea, not elsewhere classified; R53.1 Weakness
CPT/HCPCS: 93242